=== PATIENT | female | born 1965 | race Hispanic/Latino ===

== ENCOUNTER → 2017-12-06 | Day surgery (SDC) | payer OTHER ==
--- NOTE | 2017-12-06 11:03 | RAD REPORT ---
EXAM DESCRIPTION: Ultrasound-guided vacuum assisted right breast core biopsy CLINICAL HISTORY: Breast mass, right breast upper outer quadrant, 11 mm. COMPARISON: Recent breast imaging studies. FINDINGS: Informed consent was obtained and time-out was performed. The patient's right breast was prepped and draped in the usual sterile fashion. 1% lidocaine was used for local anesthetic purposes. Utilizing aseptic technique and ultrasound guidance, vacuum assisted core biopsy device was used to o btain 2 core specimen through the mass of interest. A post biopsy clip was then placed. All collected material was sent for cytology. Patient tolerated procedure well. IMPRESSION: Successful ultrasound guided vacuum assisted right breast mass biopsy.
== END | disposition home or self-care (01) ==
LOC: DS 10:08
PROVIDERS: ATTEND Clinical Nurse Specialist Women's Health
PROC: 0HBT3ZX Excision of Right Breast, Percutaneous Approach, Diagnostic (ICD-10-PCS; principal; 2017-12-06)
DX: C50.911 Malignant neoplasm of unspecified site of right female breast (principal); Z17.0 Estrogen receptor positive status [ER+]
CPT/HCPCS: 19083; 88305

== ENCOUNTER 2018-07-30 17:04 | Inpatient (IN) | payer OTHER ==
--- OUTSIDE RECORDS SUMMARY | 2018-07-30 17:07 | XMS REPORT | Clinical Summary ---
:1965 Author Organization [facility] Address [address] [place] [address] Care Team Providers Name Role Phone Asked, No Pcp Primary Care Provider Unavailable Allergies Active Allergy Reactions Severity Noted Date Comments Ciprofloxacin Hives 12/27/2017 Hydrocodone Palpitations Low 12/27/2017 Latex Other (See Comments) 04/11/2018 BLISTERS AND SORES PER PT Sulfa (Sulfonamide Rash Low 12/27/2017 Antibiotics) Medications Medication Sig Dispensed Refills Start Date End Date Status venlafaxine Take 25 mg by 0 Active (EFFEXOR) 25 MG mouth daily. tablet anastrozole Take 1 mg by 0 Active (ARIMIDEX) 1 mg mouth daily. chemo tablet calcium Take 1 tablet 0 Active carbonate-vitamin by mouth 2 D3 500 mg-200 unit (two) times a per tablet day with meals. acetaminophen Take 325 mg by 0 Active (TYLENOL) 325 MG mouth every 6 tablet (six) hours as needed for fever. ALPRAZolam (XANAX) Take 1 mg by 0 01/03/2018 Discontinued 1 MG tablet mouth nightly as needed for anxiety. minocycline Take 100 mg by 0 01/02/2018 01/12/2018 (MINOCIN,DYNACIN) mouth 2 (two) 100 MG capsule times a day. X 10 days traMADol (ULTRAM) Take 50 mg by 0 06/27/2018 Discontinued 50 mg tablet mouth every 4 (four) hours as needed for moderate pain (1-2 tabs). Active Problems Problem Noted Date Infiltrating ductal carcinoma of upper-outer quadrant of right breast in 01/04 female Encounters Date Type Specialty Care Team Description 07/02/2018 Anesthesia Event General Surgery Nevaeh Burciaga FNP 07/02/2018 Surgery General Surgery Hugo Benítez MD PhD RECONSTRUCTED BREASTS, AUTOLOGOUS FAT GRAFT TP BILATERAL RECONSTRUCTED BREAST 07/02/2018 Hospital Encounter General Surgery Hugo Benítez MD PhD 06/27/2018 Pre-Admit Testing Pre-Admission Hugo Benítez Pre-op testing Appointment Testing MD Bettina PhD (Primary Dx) 04/11/2018 Anesthesia Event General Surgery PatricaNevaeh, COMPUTER AIDED DESIGN OPERATOR 04/11/2018 Surgery General Surgery Hugo Benítez REVISION OMAYRA Dunbar MD PhD BREAST RECONTRUCTION REPAIR,, EXCHANGE TISSUE EXPANDERS FOR BILATERAL SILICONE BREAST IMPLANTS, REPAIR BILATERAL ABDOMINAL DOG EARS, FAT GRAFTING BILATERAL BREASTS 04/11/2018 Hospital Encounter General Surgery Hugo Benítez MD PhD 04/04/2018 Pre-Admit Testing Pre-Admission Hugo Benítez Preop testing ( Primary Appointment Testing MD Betitna PhD Dx) 01/03/2018 Anesthesia Event General Surgery Patrica Nevaeh, COMPUTER AIDED DESIGN OPERATOR 01/03/2018 Surgery General Surgery Hugo Benítez IMMEDIATE OMAYRA Dunbar MD PhD BREAST RECONSTRUCTION WITH JENNIFER FLAPS AND BILATERAL SILICONE IMPLANTS 01/03/2018 - Hospital Encounter General Internal Hugo Benítez Malignant neoplasm of 01/07/2018 Medicine MD Bettina PhD right female breast, unspecified estrogen receptor status, unspecified site of breast 01/02/2018 Hospital Encounter Radiology Hiren Horn MD 01/02/2018 Hospital Encounter Radiology Justina, Malignant neoplasm of Hiern Moran, upper-outer quadrant MD of right female breast, unspecified estrogen receptor status 01/02/2018 Hospital Encounter Radiology Hiren oHrn MD 01/02/2018 Hospital Encounter Radiology Hiren Horn MD 01/02/2018 Hospital Encounter Radiology Hiren Horn MD 12/30/2017 Transcribe Orders Access Justina, Malignant neoplasm of Hiren Moran, upper-outer quadrant of right female breast, unspecified estrogen receptor status (Primary Dx) 12/27/2017 Hospital Encounter Salma Horn, Pre-op testing Hiren Moran MD 12/27/2017 Pre-Admit Testing Pre-Admission Hugo Benítez Pre-op testing Appointment Testing MD Bettina PhD (Primary Dx) after 07/29/2017 Family History Medical History Relation Name Comments No Known Problems Father Hypertension Mother Relation Name Status Comments Father Alive Mother Alive Social History Tobacco Use Types Packs/Day Years Used Date Never Smoker Smokeless Tobacco: Never Used Alcohol Use Drinks/Week oz/Week Comments Yes occasionally PER PT Sex Assigned at Date Recorded Not on file Job Start Date Occupation Industry Not on file Not on file Not on file Travel History Travel Start Travel End No recent travel history available. Last Filed Vital Signs Vital Sign Reading Time Taken Blood Pressure 108/61 07/02/2018 5:13 PM [employer] Pulse 78 07/02/2018 5:13 PM [employer] Temperature 36.7 C (98.1 F) 07/02/2018 4:39 PM [employer] Respiratory Rate 18 07/02/2018 4:39 PM [employer] Oxygen Saturation 96% 07/02/2018 5:13 PM [employer] Inhaled Oxygen Concentration - - Weight 68.5 kg (151 lb) 06/27/2018 8:21 AM [employer] Height 165.1 cm (5' 5") 06/27/2018 8:21 AM [employer] Body Mass Index 25.13 06/27/2018 8:21 AM [employer] Plan of Treatment Health Maintenance Due Date Last Done Comments CERVICAL CANCER SCREENING 1986 BREAST CANCER SCREENING 2015 COLON CANCER SCREENING 2015 SHINGRIX VACCINE (1 of 2) 2015 INFLUENZA VACCINE 03/19/2018 HEPATITIS B VACCINES Aged Out No longer eligible based on patient's age to complete this topic IPV VACCINES Aged Out No longer eligible based on patient's age to complete this topic MENINGOCOCCAL VACCINE Aged Out No longer eligible based on patient's age to complete this topic Implants Implanted Type Area Storage Receipt Poster Device Shelf Model / Identifier Expiration Serial / Date Lot Tissue General Superintendent Artoura 600cc Smooth 14cm - [id number] Plastic or Left: MENTOR 10/30/2021 [id number] / Implanted: 01/03/2018 (Quantity not on file) Cosmetic Breast [employer] [id number] / Implants or [id number] Tissue Expanders or Sets Tissue General Superintendent Artoura 600cc Smooth 14cm - [id number] Plastic or Right: MENTOR 10/30/2021 [id number] / Implanted: 01/03/2018 (Quantity not on file) Cosmetic Breast [employer] [id number] / Implants or [id number] Tissue Expanders or Sets Implant Brst Memorygel Hpro Chika-Fild Smth Rnd 650cc - [id number] Plastic or Left: MENTOR 11/24/2022 [id number] / Implanted: 04/11/2018 (Quantity not on file) Gigabit Squared Breast [employer] [id number] / Implants or [id number] Tissue Expanders or Sets Implant Brst Memorygel Hpro Chika-Fild Smth Rnd 600cc - [id number] Plastic or Right: MENTOR 09/18/2022 [id number] / Implanted: 04/11/2018 (Quantity not on file) [employer] [id number] / Implants or [id number] Tissue Expanders or Sets Drain Wnd Chnl 15fr 3/16in Rnd Hbls Fl-Flut W/ 3/16in Trocar - [id number] Surgical N/A: N/A [facility] 09/18/[id number] / Implanted: 01/03/2018 (Quantity not on file) Implants; DIVISION / Expanders; [id number] Extenders; Surgical Wires Drain Wnd Chnl 15fr 3/16in Rnd Hbls Fl-Flut W/ 3/16in Trocar - [id number] Surgical N/A: N/A [facility] 10/16/2022 [id number] / Implanted: 01/03/2018 (Quantity not on file) Implants; DIVISION / Expanders; [id number] Extenders; Surgical Wires Drain Wnd Chnl 15fr 3/16in Rnd Hbls Fl-Flut W/ 3/16in Trocar - [id number] Surgical N/A: N/A [facility] 10/16/2022 [id number] / Implanted: 01/03/2018 (Quantity not on file) Implants; DIVISION / Expanders; [id number] Extenders; Surgical Wires Drain Wnd Chnl 15fr 3/16in Rnd Hbls Fl-Flut W/ 3/16in Trocar - [id number] Surgical N/A: N/A [facility] 10/16/2022 [id number] / Implanted: 01/03/2018 (Quantity not on file) Implants; DIVISION / Expanders; [id number] Extenders; Surgical Wires Drain Wnd Chnl 15fr 3/16in Rnd Hbls Fl-Flut W/ 3/16in Trocar - [id number] Surgical N/A: N/A [employer] 09/18/2022 [id number] / Implanted: 01/03/2018 (Quantity not on file) Implants; DIVISION / Expanders; [id number] Extenders; Surgical Wires Drain Wnd Chnl 15fr 16in Rnd Hbls Fl-Flut W16in Trocar - [id number] Surgical N/A: N/A [employer] 09/18/2022 [id number] / Implanted: Qty: 1 on 01/03/2018 by Hugo Benítez MD PhD Implants; DIVISION / Expanders; [id number] Extenders; Surgical Wires Cmv Driver Anstmtc Artrl Flow 3mm Hear - [id number] Surgical Right: [employer] 05/23/2019 [id number] / Implanted: Qty: 1 on 01/03/2018 by Hugo Benítez MD PhD Implants; N/A [employer] / Expanders; [id number] Extenders; Surgical Wires Cmv Driver Anstmtc Artrl Flow 2.5mm Hear - [id number] Surgical Left: [employer] 06/13/2019 [id number] / Implanted: 01/03/2018 (Quantity not on file) Implants; Breast [employer] / Expanders; [id number] Extenders; Surgical Wires Breast Implant Procedures Procedure Name Priority Date/Time Associated Diagnosis Comments IA AN ELECTIVE Routine 07/02/2018 1:17 PM SUPRAGLOTTIC AIRWAY [employer] Procedure Note - Veronica Love CRNA - 07/02/2018 1:17 PM [employer] [employer] ANESTHESIA INTUBATION Date/Time: 07/02/2018 1:05 PM Performed by: Veronica Love CRNA Authorized by: Marcelina Gibbs MD Location: OR Urgency: Elective Difficult Airway: No Anesthesiologist: Marcelina Gibbs MD Resident/LARRY OPERATOR/AA: Veronica Love CRNA Preoxygenated with 100% O2: Yes C-spine Precautions Maintained Throughout: Yes Mask Ventilation: Easy mask Final Airway Type: Supraglottic airway Final LMA: Classic LMA Size: 4 Number of Attempts at Approach: 1 Medications Administered Propofol (DIPRIVAN) BOLUS, 150 mg POC GLUCOSE Routine 07/02/2018 11:17 AM Results for this [facility] [employer] procedure are in the results section. ECG PRE/POST OP Routine 06/27/2018 9:45 AM Pre-op testing Results for this [employer] [employer] procedure are in the results section. ESTIMATED GFR Routine 06/27/2018 8:55 AM Results for this [employer] [employer] procedure are in the results section. PROTHROMBIN TIME WITH Routine 06/27/2018 8:55 AM Pre-op testing Results for this INR [employer] procedure are in the results section. PARTIAL THROMBOPLASTIN Routine 06/27/2018 8:55 AM Pre-op testing Results for this TIME (PTT) [facility] procedure are in the results section. COMPREHENSIVE METABOLIC Routine 06/27/2018 8:55 AM Pre-op testing Results for this PANEL [employer] [employer] procedure are in the results section. HC COMPLETE BLD COUNT Routine 06/27/2018 8:55 AM Pre-op testing Results for this W/AUTO DIFF [employer] [employer] procedure are in the results section. IA AN ELECTIVE Routine 04/11/2018 11:02 AM ENDOTRACHEAL AIRWAY CDT Procedure Note - Dede Flores MD - 04/11/2018 11:02 AM CDT Airway Date/Time: 04/11/2018 10:24 AM Performed by: DEDE FLORES Authorized by: DEDE FLORES Location: OR Urgency: Elective Difficult Airway: No Anesthesiologist: DEDE FLORES Performed by: anesthesiologist Preoxygenated with 100% O2: Yes C-spine Precautions Maintained Throughout: Yes Mask Ventilation: Assisted mask Final Airway Type: Endotracheal airway Final Endotracheal Airway: ETT Cuffed: Yes Technique Used: Direct laryngoscopy Insertion Site: Oral Blade Type: Dillon Laryngoscope Blade/Videolaryngoscope Blade Size: 2 ETT Size (mm): 7.0 Cuff at minimum occlusion pressure: Yes Measured from: Lips ETT to Lips (cm): 20 Placement Verified by: CO2 detection, direct visualization and equal breath sounds Laryngoscopic view: Grade IIa - partial view of glottis Rapid Sequence Induction (RSI): No Modified RSI: No Number of Attempts at Approach: 1 POC GLUCOSE Routine 04/11/2018 8:23 AM Results for this CDT procedure are in the results section. ZZESTIMATED GFR Routine 04/04/2018 10:04 AM Results for this CDT procedure are in the results section. PROTHROMBIN TIME WITH Routine 04/04/2018 10:04 AM Preop testing Results for this INR CDT procedure are in the results section. PARTIAL THROMBOPLASTIN Routine 04/04/2018 10:04 AM Preop testing Results for this TIME (PTT) CDT procedure are in the results section. COMPREHENSIVE METABOLIC Routine 04/04/2018 10:04 AM Preop testing Results for this PANEL CDT procedure are in the results section. HC COMPLETE BLD COUNT Routine 04/04/2018 10:04 AM Preop testing Results for this W/AUTO DIFF CDT procedure are in the results section. POC GLUCOSE Routine 01/03/2018 7:34 PM Results for this CDT procedure are in the results section. MISCELLANEOUS REFERRAL Routine 01/03/2018 12:00 PM Results for this TEST CDT procedure are in the results section. SURGICAL PATHOLOGY Routine 01/03/2018 10:55 AM Results for this REQUEST CDT procedure are in the results section. SURGICAL PATHOLOGY Routine 01/03/2018 10:55 AM Results for this REQUEST CDT procedure are in the results section. IA AN ELECTIVE Routine 01/03/2018 8:23 AM ENDOTRACHEAL AIRWAY CDT Procedure Note - Radames Bourne, LARRY OPERATOR - 01/03/2018 8:23 AM CDT Airway Date/Time: 01/03/2018 8:23 AM Performed by: RADAMES BOURNE Authorized by: RUPESH AG Location: OR Urgency: Elective Difficult Airway: No Anesthesiologist: RUPESH AG Resident/LARRY OPERATOR/AA: RADAMES BOURNE Performed by: resident/LARRY OPERATOR/AA Preoxygenated with 100% O2: Yes C-spine Precautions Maintained Throughout: Yes Mask Ventilation: Easy mask Final Airway Type: Endotracheal airway Final Endotracheal Airway: ETT Cuffed: Yes Technique Used: Direct laryngoscopy Insertion Site: Oral Blade Type: Dillon Laryngoscope Blade/Videolaryngoscope Blade Size: 2 ETT Size (mm): 7.0 Cuff at minimum occlusion pressure: Yes Measured from: Lips ETT to Lips (cm): 21 Placement Verified by: CO2 detection, direct visualization and equal breath sounds Laryngoscopic view: Grade I - full view of glottis Rapid Sequence Induction (RSI): No Modified RSI: No Number of Attempts at Approach: 1 URINALYSIS SCREEN AND Timed 01/03/2018 8:09 Malignant neoplasm Results for this MICROSCOPY, WITH REFLEX AM CDT of right female procedure are in TO CULTURE breast, unspecified the results estrogen receptor section. status, unspecified site of breast URINE CULTURE Timed 01/03/2018 8:09 Results for this AM CDT procedure are in the results section. POC GLUCOSE Routine 01/03/2018 6:29 Results for this AM CDT procedure are in the results section. NM LYMPHOSEEK IMAGING Routine 01/02/2018 6:05 Malignant neoplasm Results for this PM CDT of upper-outer procedure are in quadrant of right the results female breast, section. unspecified estrogen receptor status XR CHEST 2 VW Routine 12/27/2017 10:29 Pre-op testing Results for this AM CDT procedure are in the results section. ZZESTIMATED GFR Routine 12/27/2017 10:01 Results for this AM CDT procedure are in the results section. COMPREHENSIVE METABOLIC Routine 12/27/2017 10:01 Pre-op testing Results for this PANEL AM CDT procedure are in the results section. PROTHROMBIN TIME WITH Routine 12/27/2017 10:01 Pre-op testing Results for this INR AM CDT procedure are in the results section. PARTIAL THROMBOPLASTIN Routine 12/27/2017 10:01 Pre-op testing Results for this TIME (PTT) AM CDT procedure are in the results section. HC COMPLETE BLD COUNT Routine 12/27/2017 10:01 Pre-op testing Results for this W/AUTO DIFF AM CDT procedure are in the results section. ECG PRE/POST OP Routine 12/27/2017 8:59 Pre-op testing Results for this AM CDT procedure are in the results section. MAMMO EXTERNAL STUDY Routine 12/18/2017 2:11 Results for this PM CDT procedure are in the results section. US BREAST EXTERNAL Routine 12/18/2017 2:10 Results for this STUDY PM CDT procedure are in the results section. MAMMO EXTERNAL STUDY Routine 12/18/2017 2:09 Results for this PM CDT procedure are in the results section. after 07/29/2017 Results POC glucose (07/02/2018 11:17 AM [facility] [employer])Only the most recent of4 resultswithin the time period is included. POC glucose 72 65 - 99 mg/dL [facility] [employer] [facility][NOTE 3] Comment: HOSPITAL Meter ID: [id number] Keno Writer: Syed Elkins Performing Organization Address City/State/Zipcode Phone Number [facility] DEPARTMENT OF PATHOLOGY [address] [facility] [place] [address] AND GENOMIC MEDICINE [facility] [address] [facility] [place] [address] HOSPITAL ECG Pre/Post Op (06/27/2018 9:45 AM [employer] [employer])Only the most recent of2 resultswithin the time period is included. Ventricular rate 80 [facility] Atrial rate 80 [facility] IA interval 128 [facility] QRSD interval 64 [facility] QT interval 382 [facility] QTC interval 440 [facility] P axis 1 24 [facility] QRS axis 1 8 [facility] T wave axis 37 [facility] EKG impression Normal sinus rhythm-Normal ECG-In automated [facility] MUSE comparison with ECG of 27-DEC-2017 08:59,-No significant change was found- Performing Organization Address City/[facility] Phone Number [facility] [employer] [address] [place] [address] Estimated GFR (06/27/2018 8:55 AM [employer]) Estimated GFR >=90 mL/min/1.73 m2 [facility] DEPARTMENT OF Comment: PATHOLOGY AND GENOMIC CatergoryUnitsInterpretation MEDICINE G1 >=90 Normal or high G2 60-89Mildly decreased [id number] to moderately decreased [id number] to severely decreased G4 15-29Severely decreased G5 <15Kidney failure The eGFR was calculated using the Chronic Kidney Disease Epidemiology Collaboration (CKD-EPI) equation. Interpretation is based on recommendations of the National Kidney Foundation-Kidney Disease Outcomes Quality Initiative (NKF-KDOQI) published in 2014. Specimen Plasma specimen Performing Organization Address [facility] Phone Number [facility] DEPARTMENT OF PATHOLOGY [address] [facility] [place] [address] AND [employer] [facility] Partial thromboplastin time, activated (06/27/2018 8:55 AM [employer])Only the most recent of3 resultswithin the time period is included. PTT 26.6 23.0 - 36.0 sec [facility] DEPARTMENT OF Comment: PATHOLOGY AND GENOMIC PTT therapeutic range for unfractionated heparin is MEDICINE 61.0-112.0 seconds which corresponds to Anti-Xa 0.3-0.7 U/ml. Specimen Blood Performing Organization Address [facility] Phone Number [facility] DEPARTMENT OF PATHOLOGY [address] [facility] [place] [address] AND [facility] Prothrombin time with INR (06/27/2018 8:55 AM [employer])Only the most recent of3 resultswithin the time period is included. Prothrombin time 12.4 11.5 - 14.5 sec [facility] DEPARTMENT OF PATHOLOGY AND GENOMIC MEDICINE INR 1.0 [facility] DEPARTMENT OF Comment: PATHOLOGY AND GENOMIC The International Normalized Ratio (INR) is a therapeutic MEDICINE monitoring tool for patients who are stable on oral anticoagulant therapy. An INR of 2.0-3.0 is suggested for deep vein thrombosis/pulmonary embolism. Specimen Blood Performing Organization Address City/State/Zipcode Phone Number [facility] DEPARTMENT OF PATHOLOGY [address] [place], [place] [id number] [place] [address] CBC with platelet and differential (06/27/2018 8:55 AM [employer])Only the most recent of3 resultswithin the time period is included. WBC 5.3 4.5 - 11.0 k/uL [facility] DEPARTMENT OF PATHOLOGY AND GENOMIC MEDICINE RBC 4.30 4.20 - 5.50 m/uL [facility] DEPARTMENT OF PATHOLOGY AND GENOMIC MEDICINE HGB 10.9 (L) 12.0 - 16.0 g/dL [facility] DEPARTMENT OF PATHOLOGY AND GENOMIC MEDICINE HCT 36.1 (L) 37.0 - 47.0 % [facility] DEPARTMENT OF PATHOLOGY AND GENOMIC MEDICINE MCV 84.0 82.0 - 100.0 fL [facility] DEPARTMENT OF PATHOLOGY AND GENOMIC MEDICINE MCH 25.3 (L) 27.0 - 34.0 pg [facility] DEPARTMENT OF PATHOLOGY AND GENOMIC MEDICINE MCHC 30.2 (L) 31.0 - 37.0 g/dL [facility] DEPARTMENT OF PATHOLOGY AND GENOMIC MEDICINE RDW - SD 51.8 37.0 - 55.0 fL [facility] DEPARTMENT OF PATHOLOGY AND GENOMIC MEDICINE MPV 9.4 6.9 - 11.0 fL [facility] DEPARTMENT OF PATHOLOGY AND GENOMIC MEDICINE Platelet count 281 150 - 400 K/uL [facility] DEPARTMENT OF PATHOLOGY AND GENOMIC MEDICINE Nucleated RBC 0.00 /100 WBC [facility] DEPARTMENT OF PATHOLOGY AND GENOMIC MEDICINE Neutrophils 59.2 39.0 - 69.0 % [facility] DEPARTMENT OF PATHOLOGY AND GENOMIC MEDICINE Lymphocytes 31.2 25.0 - 45.0 % [facility] DEPARTMENT OF PATHOLOGY AND GENOMIC MEDICINE Monocytes 8.4 0.0 - 10.0 % [facility] DEPARTMENT OF PATHOLOGY AND GENOMIC MEDICINE Eosinophils 0.4 0.0 - 5.0 % [facility] DEPARTMENT OF PATHOLOGY AND GENOMIC MEDICINE Basophils 0.4 0.0 - 1.0 % [facility] DEPARTMENT OF PATHOLOGY AND GENOMIC MEDICINE Immature granulocytes 0.4 0.0 - 1.0 % [facility] DEPARTMENT OF PATHOLOGY AND GENOMIC MEDICINE Specimen Blood Performing Organization Address [facility] Phone Number [facility] DEPARTMENT OF PATHOLOGY [address] [place] [id number] [employer] Comprehensive metabolic panel (06/27/2018 8:55 AM [employer] [employer])Only the most recent of3 resultswithin the time period is included. Sodium 140 135 - 148 mEq/L [facility] DEPARTMENT OF PATHOLOGY AND GENOMIC MEDICINE Potassium 4.7 3.5 - 5.0 mEq/L [facility] DEPARTMENT OF PATHOLOGY AND GENOMIC MEDICINE Chloride 99 98 - 112 mEq/L [facility] DEPARTMENT OF PATHOLOGY AND GENOMIC MEDICINE CO2 28 24 - 31 mEq/L [facility] DEPARTMENT OF PATHOLOGY AND GENOMIC MEDICINE Anion gap 13@ANIO 7 - 15 mEq/L [facility] DEPARTMENT OF PATHOLOGY AND GENOMIC MEDICINE BUN 15 6 - 20 mg/dL [facility] DEPARTMENT OF PATHOLOGY AND GENOMIC MEDICINE Creatinine 0.56 0.50 - 0.90 mg/dL [facility] DEPARTMENT OF PATHOLOGY AND GENOMIC MEDICINE Glucose 90 65 - 99 mg/dL [facility] DEPARTMENT OF PATHOLOGY AND GENOMIC MEDICINE Calcium 9.7 8.3 - 10.2 mg/dL [facility] DEPARTMENT OF PATHOLOGY AND GENOMIC MEDICINE Protein 8.0 6.3 - 8.3 g/dL [facility] DEPARTMENT OF PATHOLOGY AND GENOMIC MEDICINE Albumin 4.1 3.5 - 5.0 g/dL [facility] DEPARTMENT OF PATHOLOGY AND GENOMIC MEDICINE A/G ratio 1.1 0.7 - 3.8 [facility] DEPARTMENT OF PATHOLOGY AND GENOMIC MEDICINE Alkaline phosphatase 120 (H) 35 - 104 U/L [facility] DEPARTMENT OF PATHOLOGY AND GENOMIC MEDICINE AST 25 10 - 35 U/L [facility] DEPARTMENT OF PATHOLOGY AND GENOMIC MEDICINE ALT 28 5 - 50 U/L [facility] DEPARTMENT OF PATHOLOGY AND GENOMIC MEDICINE Total bilirubin <0.2 0.2 - 1.2 mg/dL [facility] DEPARTMENT OF PATHOLOGY AND GENOMIC MEDICINE Specimen Plasma specimen Performing Organization Address City/[facility] Phone Number [facility] DEPARTMENT OF PATHOLOGY [address] [place] [phone] [facility] [employer] Estimated GFR (04/04/2018 10:04 AM CDT)Only the most recent of2 resultswithin the time period is included. GFR Non Af Amer >90 mL/min/1.73 m2 [facility] DEPARTMENT OF PATHOLOGY AND GENOMIC MEDICINE GFR Af Amer >90 mL/min/1.73 m2 [facility] DEPARTMENT OF Comment: PATHOLOGY AND GENOMIC Chronic kidney disease: <60 mL/min/1.73m2 MEDICINE Kidney failure: <15 mL/min/1.73m2 The estimated GFR is calculated from the IDMS-traceable Modification of Diet in Renal Disease Equation. The accuracy of the calculation is poor when the creatinine is normal. Calculated values >90 mL/min/1.73m2 are not reported. This equation has not been validated in children (<18 years), women, the elderly (>70 years), or ethnic groups other than Caucasians and Americans. Specimen Plasma specimen Performing Organization Address City/[facility] Phone Number [facility] DEPARTMENT OF PATHOLOGY [id number] [place] [id number] [employer] Miscellaneous referral test (01/03/2018 12:00 PM CDT) [facility] test name ONCOTYPEDX BREAST [facility] test result SEE NOTE [facility] Comment: ONCOTYPEDX CANCER ASSAY CASE: [id number] NOTE: COMPLETE DETAILED REPORT SENT TO SUBMITTING PHYSICIAN(S) PER [facility] TO ATTACH TO PATHOLOGY REPORT. MISCELLANEOUS ORDERED FOR BILLING PURPOSES ONLY. TEST PERFORMED BY: [employer] [address] [place] [id number] Narrative Performed At COUNTS INCLUDE 234 BEDS AT THE [facility] BREAST CANCER ASSAY [id number] DOS: 01/03/2018 Performing Organization Address City/State/[facility] Phone Number [facility] [address] [place] [address] Surgical pathology request (01/03/2018 10:55 AM CDT)Only the most recent of2 resultswithin the time period is included. [facility] DEPARTMENT OF PATHOLOGY AND GENOMIC MEDICINE Surgical pathology See link below for PDF Lab [facility] DEPARTMENT OF report Report PATHOLOGY AND GENOMIC MEDICINE Result status This is Supplemental Report [facility] DEPARTMENT OF to [id number] PATHOLOGY AND GENOMIC MEDICINE Performing Organization Address City/[facility]/Zipcode Phone Number [facility] DEPARTMENT OF PATHOLOGY [id number] [place] [address] AND Direct Sitters Urinalysis screen and microscopy, with reflex to culture (01/03/2018 8:09 AM CDT) Specimen site Catheterized [facility] DEPARTMENT OF PATHOLOGY AND GENOMIC MEDICINE Color, UA Straw [facility] DEPARTMENT OF PATHOLOGY AND GENOMIC MEDICINE Appearance, UA Clear [facility] DEPARTMENT OF PATHOLOGY AND GENOMIC MEDICINE Specific gravity, UA 1.009 1.001 - 1.030 [facility] DEPARTMENT OF PATHOLOGY AND GENOMIC MEDICINE pH, UA 7.0 5.0 - 9.0 [facility] DEPARTMENT OF PATHOLOGY AND GENOMIC MEDICINE Protein, UA Negative Negative [facility] DEPARTMENT OF PATHOLOGY AND GENOMIC MEDICINE Glucose, UA Negative Negative [facility] DEPARTMENT OF PATHOLOGY AND GENOMIC MEDICINE Ketones, UA Negative Negative [facility] DEPARTMENT OF PATHOLOGY AND GENOMIC MEDICINE Bilirubin, UA Negative Negative [facility] DEPARTMENT OF PATHOLOGY AND GENOMIC MEDICINE Blood, UA Negative Negative [facility] DEPARTMENT OF PATHOLOGY AND GENOMIC MEDICINE Nitrite, UA Negative Negative [facility] DEPARTMENT OF PATHOLOGY AND GENOMIC MEDICINE Urobilinogen, UA <2.0 <2.0 E.U./dL [facility] DEPARTMENT OF PATHOLOGY AND GENOMIC MEDICINE Leukocyte esterase, UA Negative Negative [facility] DEPARTMENT OF PATHOLOGY AND GENOMIC MEDICINE Epithelial cells, UA 1 /HPF [facility] DEPARTMENT OF PATHOLOGY AND GENOMIC MEDICINE WBC, UA <1 0 - 4 /HPF [facility] DEPARTMENT OF PATHOLOGY AND GENOMIC MEDICINE RBC, UA None seen 0 - 5 /HPF [facility] DEPARTMENT OF PATHOLOGY AND GENOMIC MEDICINE Bacteria, UA None seen None seen [facility] DEPARTMENT OF PATHOLOGY AND GENOMIC MEDICINE Yeast, UA None seen [facility] DEPARTMENT OF PATHOLOGY AND GENOMIC MEDICINE Yeast with pseudohyphae, UA None seen [facility] DEPARTMENT OF PATHOLOGY AND GENOMIC MEDICINE Specimen Urine - Urine, catheter Performing Organization Address City/[facility]/Zipcode Phone Number [facility] DEPARTMENT OF PATHOLOGY [address] [place] [phone] AND [facility] Urine culture (01/03/2018 8:09 AM CDT) Urine culture SEE COMMENTComment: Bacteriuria [facility] DEPARTMENT OF PATHOLOGY screen negative. AND GENOMIC MEDICINE Performing Organization Address [facility]/Zipcode Phone Number [facility] DEPARTMENT OF PATHOLOGY [id number] [place] [address] AND [facility] NM Lymphoseek System Imaging (01/02/2018 6:05 PM CDT) Narrative Performed At Procedure:NM LYMPHOSEEK IMAGING [facility] Clinical History:C50.411 Malignant neoplasm of upper-outer quadrant of right female breast, RIGHT BREAST CANCER (C50.411) Technique: 1 mCi of [id number] (Lymphoseek) was injected intradermally in the right breast, followed by imaging of the axilla in the anterior and lateral projections. Findings: There are 2 separate lymphatic drainage tracts, both leading to the right axilla. 3 foci of mild uptake are present in the right axilla. IMPRESSION: 3 potential sentinel lymph nodes in the right axilla. [facility]-[id number] Procedure Note Interface, Radiology Results Incoming - 01/02/2018 6:27 PM CDT Procedure: NM LYMPHOSEEK IMAGING Clinical History: C50.411 Malignant neoplasm of upper-outer quadrant of right female breast, RIGHT BREAST CANCER (C50.411) Technique: 1 mCi of [id number] (Lymphoseek) was injected intradermally in the right breast, followed by imaging of the axilla in the anterior and lateral projections. Findings: There are 2 separate lymphatic drainage tracts, both leading to the right axilla. 3 foci of mild uptake are present in the right axilla. IMPRESSION: 3 potential sentinel lymph nodes in the right axilla. [facility]-[id number] Performing Organization Address City/[facility] Phone Number [facility] [address] [place] [address] XR Chest 2 Vw (12/27/2017 10:29 AM CDT) Narrative Performed At EXAMINATION:XR CHEST 2 VW [facility] CLINICAL HISTORY:Z01.818 Encounter for other preprocedural examination, PRE OP COMPARISON:None IMPRESSION: 1.Heart size within normal limits. No infiltrates or effusions are seen. 2.Vessels are not congested. [facility]-[id number] Procedure Note Interface, Radiology Results Incoming - 12/27/2017 10:35 AM CDT EXAMINATION: XR CHEST 2 VW CLINICAL HISTORY: Z01.818 Encounter for other preprocedural examination, PRE OP COMPARISON: None IMPRESSION: 1. Heart size within normal limits. No infiltrates or effusions are seen. 2. Vessels are not congested. [facility]-[id number] Performing Organization Address [facility] Phone Number [facility] [address] [place] [address] Mammo External Study (12/18/2017 2:11 PM CDT)Only the most recent of2 resultswithin the time period is included. Narrative Performed At This exam was not acquired at a [facility]astafarian facility and has not been [facility] interpreted by a Rastafarian Provider.The exam was imported into our imaging system for comparisons purposes. Performing Organization Address City/State/Zipcode Phone Number [facility] [address] [phone] US Breast External Study (12/18/2017 2:10 PM CDT) Narrative Performed At This exam was not acquired at a Rastafarian facility and has not been [facility] interpreted by a Rastafarian Provider.The exam was imported into our imaging system for comparisons purposes. Performing Organization Address City/State/Zipcode Phone Number [facility] [address] [place] [address] after 07/29/2017 Insurance Payer Benefit Plan / Group Subscriber ID Type Phone Address AETNA AETNA HMO,POS,EPO, MC/EC xxxxxxxxxx HMO [phone] [place] [address] (Home) [place] [id number] [facility]al[facility] 1965 [phone] [place] [address] Surgery 3 (Home) [place] [id number] Advance Directives Patient has advance care planning documents on file. For more information, please contact:[address] [address]
[2018-07-30] MEDS ORDERED: HYDROMORPHONE HCL 1 MG/ML INJ ONE (17:40)
[2018-07-30] MEDS ORDERED: ACETAMINOPHEN 500 MG TAB ONE (17:40)
[2018-07-30] MEDS ORDERED: NA CHLORIDE 0.9% 1,000 ML ONE ×3 (17:40→22:16)
[2018-07-30 18:21] LABS: ALT/SGPT 30 U/L (12-78); AST/SGOT 39 U/L (15-37); Albumin 3.5 g/dL (3.4-5.0); Alkaline Phosphatase 132 U/L (45-117); BUN Blood Urea Nitrogen 11 mg/dL (7-18); Bicarbonate 28 mmol/L (21-32); Bilirubin Direct < 0.1 mg/dL (0-0.2); Bilirubin Total 0.3 mg/dL (0.2-1.0); CKMB Creatine Kinase MB < 1.0 ng/mL (0.3-3.6); Creatine Phosphokinase 131 U/L (26-192); Glucose Level 91 mg/dL (74-106); Lipase 143 U/L (73-393); Potassium 4.6 mmol/L (3.5-5.1); Sodium Level 137 mmol/L (136-145); Troponin (Emerg Dept Use Only) < 0.02 ng/mL (0.0-0.045)
--- NOTE | 2018-07-30 18:28 | RAD REPORT ---
EXAM DESCRIPTION: RAD - Chest Single View - 07/30/2018 6:21 pm CLINICAL HISTORY: CHEST PAIN Chest pain. COMPARISON: CHEST SINGLE VIEW dated 03/05/2012 FINDINGS: Portable technique limits examination quality. The lungs are grossly clear. The heart is normal in size. No displaced fractures. IMPRESSION: No acute intrathoracic process suspected.
[2018-07-30 18:48] LABS: Protime INR 1.03
[2018-07-30 19:04] LABS: Absolute Lymphocytes (CBC) 0.8 K/uL (0.7-4.9); Absolute Monocytes 0.4 K/uL (0.1-1.3); Absolute Neutrophil 10.6 K/uL (1.8-8.0); Basophils % 0.4 % (0-1.3); Eosinophils % 0.1 % (0-4.4); Hematocrit 34.3 % (36.0-45.0); Lymphocytes % 6.4 % (15.3-44.8); MCH 26.2 pg (27.0-35.0); MCV 80.7 fL (80-100); MPV 8.2 fL (7.6-11.3); Monocytes % 3.4 % (3.3-12.3); RBC Red Blood Cell Count 4.25 M/uL (3.86-4.86)
[2018-07-30 19:34] LABS: Blood Morphology Comment NOTED (NOT SEEN); Hypochromasia 1+; Platelet Estimate ADEQ; Stomatocytes 1+; Urine White Blood Cell Casts OK
--- NOTE | 2018-07-30 19:50 | RAD REPORT ---
EXAM DESCRIPTION: CT - Head Brain Wo Cont - 07/30/2018 7:41 pm CLINICAL HISTORY: HEADACHE Fever COMPARISON: No comparisons TECHNIQUE: All CT scans are performed using dose optimization technique as appropriate and may inclu de automated exposure control or mA/KV adjustment according to patient size. FINDINGS: No intracranial hemorrhage, hydrocephalus or extra-axial fluid collection.No areas of brai n edema or evidence of midline shift. The paranasal sinuses and mastoids are clear. The calvarium is intact. IMPRESSION: No acute intracranial abnormality.
[2018-07-30] MEDS ORDERED: IBUPROFEN 400 MG TAB ONE (20:45)
[2018-07-30] MEDS ORDERED: IBUPROFEN 200 MG TAB PO ONE (20:45)
[2018-07-30 20:56] LABS: Urine Blood NEGATIVE (NEG); Urine Glucose NEGATIVE (NEG); Urine Protein NEGATIVE (NEG)
[2018-07-30 20:57] LABS: Urine Bacteria NONE SEEN /HPF (<20); Urine Culture Reflex Order NOT NEEDED; Urine RBC <5 /HPF (NONE SEEN)
[2018-07-30] MEDS ORDERED: VANCOMYCIN 1 GM/250 ML BAG ONE (22:05)
[2018-07-30] MEDS ORDERED: PIPER/TAZO/NS 3.375gm 3.375 GM/100 ML BAG ONE (22:05)
--- NOTE | 2018-07-30 22:05 | ER ---
Nurse's Notes [facility] Name: Cassy Schmitz Age: 52 yrs Sex: Female : 1965 Arrival Date: 07/30/2018 Time: 17:07 Bed 5 Private MD: Diagnosis: Sepsis, unspecified organism;Cellulitis of chest wall Presentation: 07/30 17:08 Presenting complaint: EMS states: per EMD, pt has been taking anastrozole, chemo drug hj for breast cancer since December this year; today around 1 pm, pt started complaining of flu like symptoms, body aches and low grade fever of 100.9; reports joint pains; BP- 142/83; HR- 134; T- 100.9;. Transition of care: patient was not received from another setting of care. Onset of symptoms was July 30, 2018. Risk Assessment: Do you want to hurt yourself or someone else? Patient reports no desire to harm self or others. Initial Sepsis Screen: Does the patient meet any 2 criteria? No. Patient's initial sepsis screen is negative. Does the patient have a suspected source of infection? No. Patient's initial sepsis screen is negative. Care prior to arrival: None. 17:08 Method Of Arrival: EMS: [facility] 17:08 Acuity: JANI 3 hj Triage Assessment: 17:12 General: Appears in no apparent distress. uncomfortable, Behavior is calm, cooperative, hj appropriate for age. Pain: Complains of pain in body aches. Historical: - Allergies: 17:11 Ciprofloxacin HCl; 17:11 Sulfa (Sulfonamide Antibiotics); 17:11 Hydrocodone-Acetaminophen; hj - Home Meds: 17:11 anastrozole 1 mg oral tab [Active]; hj - PMHx: 17:11 breast cancer; hj - PSHx: 17:11 breast surgery; hj - Immunization history:: Adult Immunizations unknown. - Social history:: Smoking status: Patient/guardian denies using tobacco, Patient/guardian denies using alcohol. - Ebola Screening: : Patient negative for fever greater than or equal to 101.5 degrees Fahrenheit, and additional compatible Ebola Virus Disease symptoms Patient denies exposure to infectious person Patient denies travel to an Ebola-affected area in the 21 days before illness onset. Screenin:12 Abuse screen: Denies threats or abuse. Denies injuries from another. Nutritional hj screening: No deficits noted. Tuberculosis screening: No symptoms or risk factors identified. Fall Risk None identified. Assessment: 17:08 General: Appears in no apparent distress. uncomfortable, Behavior is cooperative, hj appropriate for age, anxious, crying. Pain: Complains of pain in body. Neuro: Level of Consciousness is awake, alert, obeys commands, Oriented to person, place, time, situation, Appropriate for age. Cardiovascular: Heart tones S1 S2 present Capillary refill < 3 seconds Patient's skin is warm and dry. Rhythm is sinus tachycardia. Respiratory: Airway is patent Respiratory effort is even, unlabored, Respiratory pattern is regular, symmetrical. GI: No signs and/or symptoms were reported involving the gastrointestinal system. : No signs and/or symptoms were reported regarding the genitourinary system. EENT: No signs and/or symptoms were reported regarding the EENT system. Derm: Rash noted that is chest area;. Musculoskeletal: No signs and/or symptoms reported regarding the musculoskeletal system. 18:32 Reassessment: Patient and/or family updated on plan of care and expected duration. Pain hj level reassessed. Patient is alert, oriented x 3, equal unlabored respirations, skin warm/dry/pink. awaiting results and POC: Patient states feeling better. Patient states symptoms have improved. 20:09 Reassessment: Patient appears in no apparent distress at this time. Patient and/or rv family updated on plan of care and expected duration. Pain level reassessed. 23:27 Reassessment: Patient appears in no apparent distress at this time. AWAITING ACCEPTANCE rv FROM OTHER FACILITY. Vital Signs: 17:13 BP 132 / 86; Pulse 120; Resp 18; Temp 100.6(O); Pulse Ox 100% on R/A; Weight 63.5 kg; hj Height 5 ft. 4 in. (162.56 cm); Pain 10/10; 18:28 BP 128 / 80; Pulse 106; Resp 18; Pulse Ox 100% on R/A; hj 19:00 BP 123 / 80; Pulse 111 MON; Resp 18 S; Pulse Ox 100% on R/A; rv 20:22 BP 117 / 78; Pulse 122 MON; Resp 24 S; Temp 103(O); Pulse Ox 100% on R/A; rv 21:00 BP 103 / 72; Pulse 116 MON; Resp 22 S; Pulse Ox 100% on 2 lpm NC; jd3 21:30 BP 97 / 57; Pulse 116 MON; Resp 23 S; Pulse Ox 97% on 2 lpm NC; jd3 22:15 BP 95 / 56 LA (auto/); Pulse 114 MON; Resp 17 S; Temp 100.3(O); Pulse Ox 98% on 2 lpm jd3 NC; 23:26 BP 96 / 56; Pulse 105 MON; Resp 18 S; Pulse Ox 98% 2 lpm ; rv 12 00:23 BP 90 / 53; Pulse 104; Resp 16; Pulse Ox 99% on 2 lpm NC; rv 12 17:13 Body Mass Index 24.03 (63.50 kg, 162.56 cm) ED Course: 07/30 17:07 Patient arrived in ED. hj 17:10 Triage completed. hj 17:12 Arm band placed on right wrist. hj 17:12 Patient has correct armband on for positive identification. Placed in gown. Bed in low hj position. Call light in reach. Side rails up X 1. Adult w/ patient. 17:13 Daniel Strong PA is PHCP. jr8 17:13 Abhinav England MD is Attending Physician. jr8 17:26 Drew Nash RN is Primary Nurse. hj 17:29 EKG done, by spd tech. reviewed by Daniel HARRELL. sm3 17:45 Initial lab(s) drawn, by me, sent to lab. First set of blood cultures drawn by me. hj 17:54 Inserted saline lock: 22 gauge in left forearm, using aseptic technique. Blood hj collected. 18:18 PHCP role handed off by Daniel Strong PA pm1 18:18 Calixto Bishop NP is PHCP. pm1 18:19 X-ray completed. Portable x-ray completed in exam room. Patient tolerated procedure mh1 well. 18:20 Chest Single View XRAY In Process Unspecified. EDMS 19:00 Report given to KEREN Pace. hj 19:41 CT Head Brain wo Cont In Process Unspecified. EDMS 20:09 Inserted saline lock: 24 gauge in left hand, using aseptic technique. Blood collected. ds4 20:10 Report received from NURSE CLARK. rv 20:10 [place] Screen Profile Sent. ds4 22:34 called to initiate transfer . kirby harman spoke with house sup. no beds gm available. 23:27 Bharat Falcon MD is Hospitalizing Provider. pm1 07/31 01:36 No provider procedures requiring assistance completed. Patient admitted, IV remains in rv place. intact. Administered Medications: 07/30 17:27 Drug: Acetaminophen 1000 mg Route: PO; hj 18:55 Follow up: Response: No adverse reaction hj 18:00 Drug: NS 0.9% (30 ml/kg) 30 ml/kg Route: IV; Rate: bolus; Site: left antecubital; hj 22:33 Follow up: IV Status: Completed infusion; IV Intake: 2000ml rv 18:00 Drug: Dilaudid 1 mg Route: IVP; Site: left antecubital; hj 18:27 Follow up: Response: No adverse reaction; Pain is decreased hj 20:45 Drug: Ibuprofen 600 mg Route: PO; rv 22:33 Follow up: Response: Temperature is decreased rv 22:00 Drug: Zosyn 3.375 grams Route: IVPB; Infused Over: 60 mins; Site: left antecubital; rv 23:18 Follow up: IV Status: Completed infusion rv 22:13 Drug: fentaNYL (PF) 25 mcg Route: IVP; Site: left antecubital; rv 23:18 Follow up: Response: Pain is decreased rv 22:15 CANCELLED (md discretion): Dilaudid 1 mg IVP once rv 22:16 Drug: NS 0.9% 1000 ml Route: IV; Rate: 125 ml/hr; Site: left antecubital; rv 07/31 01:38 Follow up: IV Status: Completed infusion rv 07/30 23:19 Drug: vancoMYCIN 1 grams Route: IVPB; Infused Over: 2 hrs; Site: left antecubital; rv 07/31 01:38 Follow up: IV Status: Completed infusion rv Intake: 07/30 22:33 IV: 2000ml; Total: 2000ml. rv Outcome: 22:05 ER care complete, transfer ordered by MD. pm1 23:28 Decision to Hospitalize by Provider. pm1 07/31 01:37 Admitted to ICU accompanied by nurse, via stretcher, room 8, on monitor, with chart, rv Report called to NURSE DAY Condition: stable Instructed on the need for admit. 01:39 Patient left the ED. rv Signatures: Dispatcher [employer] EDMS Agnes Castillo mh1 Daniel Strong PA PA jr8 Erickson Camejo ds4 Drew Nash RN RN hj Calixto Bishop, NATY CANDY WRAPPING MACHINE OPERATOR pm1 Jose G Morel RN RN jd3 Ami Phillips sm3 Alonso Guzman RN RN rv Moya, Gabriella gm Corrections: (The following items were deleted from the chart) 07/30 18:05 17:13 BP 132 / 86; Pulse 120bpm; Resp 18bpm; Pulse Ox 100% RA; Temp 100.6F Oral; 4.54 hj kg; Height 5 ft. 4 in.; BMI: 1.72; Pain 10/10; hj
--- NOTE | 2018-07-30 22:06 | EDPHYS ---
Physician Documentation [facility] Name: Cassy Schmitz Age: 52 yrs Sex: Female : 1965 Arrival Date: 07/30/2018 Time: 17:07 Bed 5 Private MD: ED Physician Abhinav England HPI: 07/30 17:42 This 52 yrs old Female presents to ER via EMS with complaints of Flu Symptoms. jr8 17:42 Patient with radical bilateral mastectomy this past december. Stated that she was started on jr8 Anastozole that december as well. Had gradual muscle stiffness and bone and joint pain since she has been on medication but can normally tolerate the pain. Today had sudden onset of worsening of pain along with aches, chills, fever, headache, and neck stiffness . Severity of symptoms: At their worst the symptoms were moderate in the emergency department the symptoms are unchanged. The patient has not experienced similar symptoms in the past. The patient has not recently seen a physician. Historical: - Allergies: 17:11 Ciprofloxacin HCl; hj 17:11 Sulfa (Sulfonamide Antibiotics); hj 17:11 Hydrocodone-Acetaminophen; hj - Home Meds: 17:11 anastrozole 1 mg oral tab [Active]; hj - PMHx: 17:11 breast cancer; hj - PSHx: 17:11 breast surgery; hj - Immunization history:: Adult Immunizations unknown. - Social history:: Smoking status: Patient/guardian denies using tobacco, Patient/guardian denies using alcohol. - Ebola Screening: : Patient negative for fever greater than or equal to 101.5 degrees Fahrenheit, and additional compatible Ebola Virus Disease symptoms Patient denies exposure to infectious person Patient denies travel to an Ebola-affected area in the 21 days before illness onset. ROS: 17:42 Eyes: Negative for injury, pain, redness, and discharge, ENT: Negative for injury, jr8 pain, and discharge, Cardiovascular: Negative for chest pain, palpitations, and edema, Respiratory: Negative for shortness of breath, cough, wheezing, and pleuritic chest pain, Abdomen/GI: Negative for abdominal pain, nausea, vomiting, diarrhea, and constipation, Back: Negative for injury and pain, Skin: Negative for injury, rash, and discoloration. 17:42 Constitutional: Positive for body aches, chills, fever. 17:42 Neck: Positive for stiffness, Negative for pain with movement, pain at rest, tenderness, bony tenderness. 17:42 MS/extremity: Positive for diffuse joint tenderness . 17:42 Neuro: Positive for headache, Negative for altered mental status, dizziness, gait disturbance, hearing loss, loss of consciousness, numbness, seizure activity, speech changes, syncope, near syncope, tingling, tinnitus, tremor, visual changes, weakness. Exam: 17:42 Head/Face: Normocephalic, atraumatic. Eyes: Pupils equal round and reactive to light, jr8 extra-ocular motions intact. Lids and lashes normal. Conjunctiva and sclera are non-icteric and not injected. Cornea within normal limits. Periorbital areas with no swelling, redness, or edema. ENT: Nares patent. No nasal discharge, no septal abnormalities noted. Tympanic membranes are normal and external auditory canals are clear. Oropharynx with no redness, swelling, or masses, exudates, or evidence of obstruction, uvula midline. Mucous membranes moist. Cardiovascular: Regular rate and rhythm with a normal S1 and S2. No gallops, murmurs, or rubs. Normal PMI, no JVD. No pulse deficits. Respiratory: Lungs have equal breath sounds bilaterally, clear to auscultation and percussion. No rales, rhonchi or wheezes noted. No increased work of breathing, no retractions or nasal flaring. Abdomen/GI: Soft, non-tender, with normal bowel sounds. No distension or tympany. No guarding or rebound. No evidence of tenderness throughout. Back: No spinal tenderness. No costovertebral tenderness. Full range of motion. Skin: Warm, dry with normal turgor. Normal color with, no lesions. Mild red blotching rash to chest MS/ Extremity: Pulses equal, no cyanosis. Neurovascular intact. Full, normal range of motion. Neuro: Awake and alert, GCS 15, oriented to person, place, time, and situation. Cranial nerves II-XII grossly intact. Motor strength 5/5 in all extremities. Sensory grossly intact. Cerebellar exam normal. Normal gait. 17:42 Neck: External neck: is normal, Thyroid: appears normal, Trachea: is midline with no obvious abnormalities, ROM/movement: pain, that is mild, with any movement, Meningeal signs: Kernig's sign is negative, Brudzinski's sign is negative, nuchal rigidity, is not appreciated. Vital Signs: 17:13 BP 132 / 86; Pulse 120; Resp 18; Temp 100.6(O); Pulse Ox 100% on R/A; Weight 63.5 kg; hj Height 5 ft. 4 in. (162.56 cm); Pain 10/10; 18:28 BP 128 / 80; Pulse 106; Resp 18; Pulse Ox 100% on R/A; hj 19:00 BP 123 / 80; Pulse 111 MON; Resp 18 S; Pulse Ox 100% on R/A; rv 20:22 BP 117 / 78; Pulse 122 MON; Resp 24 S; Temp 103(O); Pulse Ox 100% on R/A; rv 21:00 BP 103 / 72; Pulse 116 MON; Resp 22 S; Pulse Ox 100% on 2 lpm NC; jd3 21:30 BP 97 / 57; Pulse 116 MON; Resp 23 S; Pulse Ox 97% on 2 lpm NC; jd3 22:15 BP 95 / 56 LA (auto/); Pulse 114 MON; Resp 17 S; Temp 100.3(O); Pulse Ox 98% on 2 lpm jd3 NC; 23:26 BP 96 / 56; Pulse 105 MON; Resp 18 S; Pulse Ox 98% 2 lpm ; rv 12 00:23 BP 90 / 53; Pulse 104; Resp 16; Pulse Ox 99% on 2 lpm NC; rv 07/30 17:13 Body Mass Index 24.03 (63.50 kg, 162.56 cm) hj MDM: 07/30 17:13 Patient medically screened. [facility] 23:17 Data reviewed: vital signs. Data interpreted: Pulse oximetry: on room air is 98 %. pm1 Interpretation: normal. 23:23 ED course: [facility] is at capacity for ICU beds. Informed patient and pm1 wanted to see if possible to be admitted here. 23:23 Physician consultation: Bharat Falcon MD was called at 23:26, was contacted at 23:26, pm1 regarding admission, patient's condition, and will see patient in ED. 07/30 17:25 Order name: Basic Metabolic Panel; Complete Time: 18:22 [facility] 07/30 17:25 Order name: Blood Culture Adult (2) [facility] 07/30 17:25 Order name: CBC with Diff; Complete Time: 20:01 [facility] 07/30 17:25 Order name: Ckmb; Complete Time: 18:22 [facility] 07/30 17:25 Order name: CPK; Complete Time: 18:22 [facility] 07/30 17:25 Order name: Lactate; Complete Time: 18:33 [facility] 07/30 17:25 Order name: LFT's; Complete Time: 18:22 [facility] 07/30 17:25 Order name: Lipase; Complete Time: 18:22 [facility] 07/30 17:25 Order name: Procalcitonin; Complete Time: 18:45 [facility] 07/30 17:25 Order name: Protime (+inr); Complete Time: 19:15 [facility] 07/30 17:25 Order name: Ptt, Activated; Complete Time: 19:15 [facility] 07/30 17:25 Order name: Troponin (emerg Dept Use Only); Complete Time: 18:22 [facility] 07/30 17:25 Order name: Urine Microscopic Only; Complete Time: 21:01 [facility] 07/30 17:25 Order name: Flu; Complete Time: 18:17 [facility] 07/30 17:25 Order name: Chest Single View XRAY; Complete Time: 18:33 [facility] 07/30 17:44 Order name: EKG Electrocardiogram; Complete Time: 18:03 EDMS 07/30 19:08 Order name: CBC Smear Scan; Complete Time: 20:01 EDMS 07/30 19:19 Order name: CT Head Brain wo Cont; Complete Time: 20:01 pm1 07/30 19:19 Order name: [place] Screen Profile; Complete Time: 20:27 pm1 07/30 20:53 Order name: Urine Dipstick--Ancillary (enter results); Complete Time: 21:01 gm 07/30 21:42 Order name: Lactate Sepsis 2 HR Follow-up; Complete Time: 21:47 EDMS 07/30 17:25 Order name: Accucheck; Complete Time: 18:27 [facility] 07/30 17:25 Order name: Cardiac monitoring; Complete Time: 17:28 [facility] 07/30 17:25 Order name: EKG - Nurse/Tech; Complete Time: 17:28 [facility] 07/30 17:25 Order name: IV Saline Lock - Large Bore; Complete Time: 18:05 [facility] 07/30 17:25 Order name: Labs collected and sent; Complete Time: 17:56 [facility] 07/30 17:25 Order name: O2 Per Protocol; Complete Time: 17:28 [facility] 07/30 17:25 Order name: O2 Sat Monitoring; Complete Time: 17:28 [facility] 07/30 17:25 Order name: Urine Dipstick-Ancillary (obtain specimen); Complete Time: 20:46 [facility] 07/30 18:02 Order name: Labs - recollect needed; Complete Time: 18:03 bd Administered Medications: 17:27 Drug: Acetaminophen 1000 mg Route: PO; hj 18:55 Follow up: Response: No adverse reaction hj 18:00 Drug: NS 0.9% (30 ml/kg) 30 ml/kg Route: IV; Rate: bolus; Site: left antecubital; hj 22:33 Follow up: IV Status: Completed infusion; IV Intake: 2000ml rv 18:00 Drug: Dilaudid 1 mg Route: IVP; Site: left antecubital; hj 18:27 Follow up: Response: No adverse reaction; Pain is decreased hj 20:45 Drug: Ibuprofen 600 mg Route: PO; rv 22:33 Follow up: Response: Temperature is decreased rv 22:00 Drug: Zosyn 3.375 grams Route: IVPB; Infused Over: 60 mins; Site: left antecubital; rv 23:18 Follow up: IV Status: Completed infusion rv 22:13 Drug: fentaNYL (PF) 25 mcg Route: IVP; Site: left antecubital; rv 23:18 Follow up: Response: Pain is decreased rv 22:15 CANCELLED (md discretion): Dilaudid 1 mg IVP once rv 22:16 Drug: NS 0.9% 1000 ml Route: IV; Rate: 125 ml/hr; Site: left antecubital; rv 12 01:38 Follow up: IV Status: Completed infusion rv 07/30 23:19 Drug: vancoMYCIN 1 grams Route: IVPB; Infused Over: 2 hrs; Site: left antecubital; rv 12 01:38 Follow up: IV Status: Completed infusion rv Disposition: 07/30/18 23:28 Hospitalization ordered by Bharat Falcon for Inpatient Admission. Preliminary diagnosis are Sepsis, unspecified organism, Cellulitis of chest wall. - Bed requested for Intensive Care Unit. - Status is Inpatient Admission. rv - Condition is Stable. - Problem is new. - Symptoms have improved. UTI on Admission? No Addendum: 08/05/2018 01:27 Co-signature as Attending Physician, Abhinav England MD. r n Signatures: Dispatcher [employer] EDMS Mira Chin Roman, MD MD rn Ligia, Daniel, PA PA jr8 Drew Nash, RN RN Fatmata Medina RN RN Calixto Bishop, ACADEMIC COACH ACADEMIC COACH pm1 Buck Ruiz MD MD tw4 Alonso Guzman RN RN rv Corrections: (The following items were deleted from the chart) 07/30 22:15 22:06 Dilaudid 1 mg IVP once ordered. pm1 rv 23:27 22:05 07/30/2018 22:05 Transfer ordered to Other Acute Care Facility. Diagnosis is pm1 Cellulitis of chest wall. Reason for transfer: Higher level of care. Accepting physician is Shinto ARIELLE. Condition is Stable. Problem is new. Symptoms have improved. pm1 07/31 00:40 07/30 23:28 Hospitalization Ordered by Bharat Falcon MD for Inpatient Admission. cg Preliminary diagnosis is Sepsis, unspecified organism; Cellulitis of chest wall. Bed requested for Intensive Care Unit. Status is Inpatient Admission. Condition is Stable. Problem is new. Symptoms have improved. UTI on Admission? No. pm1 07/31 01:39 00:40 07/30/2018 23:28 Hospitalization Ordered by Bharat Falcon MD for Inpatient rv Admission. Preliminary diagnosis is Sepsis, unspecified organism; Cellulitis of chest wall. Bed requested for Intensive Care Unit. Status is Inpatient Admission. Condition is Stable. Problem is new. Symptoms have improved. UTI on Admission? No. cg
[2018-07-30] MEDS ORDERED: FENTANYL CITR 100 MCG/2 ML ONE (22:21)
[2018-07-31] MEDS ORDERED: TRAMADOL HCL 50 MG TAB PO PRN (00:44)
--- NOTE | 2018-07-31 00:52 | P.HP ---
Certification for Inpatient Patient admitted to: Observation With expected LOS: <2 Midnights Practitioner: I am a practitioner with admitting privileges, knowledge of patient current condition, hospital course, and medical plan of care. Services: Services provided to patient in accordance with Admission requirements found in Title 42 Section 412.3 of the Code of Federal Regulations Patient History Date of Service: 07/31/18 Reason for admission: fever, generalized pain History of Present Illness: Ms Schmitz is a 52 years old woman with history of breast cancer, S/P bilateral mastectomy with subsequent breast implant, currently on Anastrazole treatment since December/2017. She has been with significant generalized pain due to Anastrazole, her Oncologist advised to stop treatment yesterday. Today, the patient start with chills, her generalized pain was more intense, temp at home was 100.3F. She denied SOB, cough, nausea, vomiting or diarrhea. No dysuria either. Initially in ER she had a rash on her chest, that was assumed as cellulits. However, at my examination, the rash was resolved already. Lab work remarkable for leukocytosis 11.8K, lactate elevated, procalcitonin WNL. UA normal, CXR without acute abnormalities. Her BP was in the lower side 95/66, temp 100.6F. Allergies ciprofloxacin [From Cipro] Allergy (Mild, Verified 08/21/16 10:55) Hives/Rash ciprofloxacin HCl [From Cipro] Allergy (Mild, Verified 08/21/16 10:55) Hives/Rash Sulfa (Sulfonamide Antibiotics) [Sulfa(Sulfonamide Antibiotics)] Allergy (Mild, Verified 08/21/16 10:55) Hives/Rash hydrocodone Adverse Reaction (Verified 08/21/16 10:55) heart palpitations Home medications list reviewed: Yes Home Medications: Solifenacin [Vesicare] 5 mg PO DAILY 08/21/16 - Past Medical/Surgical History -: breast cancer -: bilateral mastectomy -: breast implantation - Family History Family History: Reviewed- Non-Contributory - Social History Alcohol use: No CD- Drugs: No Place of Residence: Home Review of Systems 10-point ROS is otherwise unremarkable Physical Examination - Physical Exam General: Alert, In no apparent distress HEENT: Atraumatic, PERRLA, Mucous membr. moist/pink, EOMI, Sclerae nonicteric Neck: Supple, 2+ carotid pulse no bruit, No LAD, Without JVD or thyroid abnormality Respiratory: Clear to auscultation bilaterally, Normal air movement Cardiovascular: Regular rate/rhythm, Normal S1 S2 Gastrointestinal: Normal bowel sounds, No tenderness Musculoskeletal: No tenderness Integumentary: No rashes Neurological: Normal speech, Normal strength at 5/5 x4 extr, Normal tone, Normal affect Lymphatics: No axilla or inguinal lymphadenopathy - Studies Laboratory Data (last 24 hrs) 07/30/18 18:00: PT 12.2, INR 1.03, APTT 27.1 07/30/18 18:00: WBC 11.8 H, Hgb 11.1 L, Hct 34.3 L, Plt Count 248 07/30/18 17:45: Sodium 137, Potassium 4.6, BUN 11, Creatinine 0.80, Glucose 91, Total Bilirubin 0.3, AST 39 H, ALT 30, Alkaline Phosphatase 132 H, Lipase 143 Microbiology Data (last 24 hrs): 07/30/18 17:36 Nasopharnyx Influenza Type A Antigen Screen - Final 07/30/18 17:36 Nasopharnyx Influenza Type B Antigen Screen - Final Assessment and Plan - Problems (Diagnosis) (1) Fever and chills Current Visit: Yes Status: Acute (2) Breast cancer Current Visit: Yes Status: Acute Qualifiers: Breast location: unspecified site of breast Estrogen receptor status: unspecified Patient sex: female Laterality: bilateral Qualified Code(s): C50.911 - Malignant neoplasm of unspecified site of right female breast; C50.912 - Malignant neoplasm of unspecified site of left female breast - Plan The patient will be admitted under observation due to fever without obvious source of infection. She is on Anastrazole treatment. Lactate was elevated, and subsequent control continued elevated despite aggressive fluid resuscitation. Her BP remain also on the lower side. Continue empiric abx, consider viral infection. - Advance Directives Does patient have a Living Will: No Does patient have a Durable POA for Healthcare: No - Code Status/Comfort Care Code Status Assessed: Yes Code Status: Full Code
[2018-07-31] MEDS ORDERED: ONDANSETRON 4 MG/2 ML VIAL IV PRN (01:48)
[2018-07-31 01:56] VITALS: BMI 25.7
[2018-07-31] MEDS: NA CHLORIDE 0.9% 1,000 ML IV SCH ×3 (02:03→21:48)
[2018-07-31] MEDS: KETOROLAC 30 MG/ML INJ IV PRN (02:21)
[2018-07-31 04:59] LABS: Absolute Lymphocytes (CBC) 0.6 K/uL (0.7-4.9); Absolute Monocytes 0.5 K/uL (0.1-1.3); Absolute Neutrophil 12.2 K/uL (1.8-8.0); Basophils % 0.3 % (0-1.3); Eosinophils % 0.1 % (0-4.4); Hematocrit 28.7 % (36.0-45.0); Lymphocytes % 4.2 % (15.3-44.8); MCH 25.8 pg (27.0-35.0); MCV 79.3 fL (80-100); MPV 8.2 fL (7.6-11.3); Monocytes % 3.8 % (3.3-12.3); RBC Red Blood Cell Count 3.62 M/uL (3.86-4.86)
[2018-07-31 05:08] LABS: Potassium 3.4 mmol/L (3.5-5.1)
--- NOTE | 2018-07-31 05:13 | EKG ---
Test Date: 2018-07-30 Test Time: 17:24:16 Jig And Fixture Builder Apprentice: RENATO MEASUREMENT RESULTS: Intervals: Rate: 117 MI: 122 QRSD: 70 QT: 312 QTc: 435 Ackworth: P: 37 MI: 122 QRS: 35 T: 50 INTERPRETIVE STATEMENTS: Sinus tachycardia Otherwise normal ECG Compared to ECG 08/29/2016 13:20:10 Sinus rhythm no longer present Electronically Signed On 07-31-18 05:12:29 SAFETY SUPERVISOR by Sami Long
[2018-07-31] MEDS ORDERED: INFLUENZA VACCINE (for 3y+) 0.5 ML DOSE IMVAC ONE (09:00)
[2018-07-31] MEDS: MORPHINE 2 MG/ML SYR IV PRN ×3 (11:51→20:36)
[2018-07-31] MEDS: VANCOMYCIN 1.25 GM in NA CHLORIDE 0.9% 250 ML IVPB SCH (11:52)
[2018-07-31] MEDS ORDERED: NA CHLORIDE 0.9% 1,000 ML IV ONE (15:54)
[2018-07-31] MEDS: ACETAMINOPHEN 500 MG TAB PO PRN ×2 (16:36→20:37)
--- NOTE | 2018-07-31 16:42 | RAD REPORT ---
EXAM DESCRIPTION: CT - Abdomen Pelvis W Contrast - 07/31/2018 4:11 pm CLINICAL HISTORY: Abdominal pain, nausea, fever of unknown origin, breast cancer history COMPARISON: CT imaging October 2017, portable chest July 30 TECHNIQUE: Biphasic, helical CT imaging of the abdomen and pelvis was performed following 100 ml non -ionic IV contrast. Oral contrast was given. All CT scans are performed using dose optimization technique as appropriate and may include automated exposure control or mA/KV adjustment according to patient size. FINDINGS: Atelectasis is present in each posterior gutter. No acute lung parenchymal process. No per icardial thickening or effusion. The liver, spleen, and pancreas show no suspicious findings. Gallbladder and biliary tree are also wi thout suspicious finding. Symmetric renal function is seen with no hydronephrosis or suspicious renal mass. No pyelonephritis o r acute renal parenchymal process. Contracted urinary bladder shows no suspicious finding. Uterus is absent. Ovaries are absent or atrophic. No adnexal abnormality. No dilated bowel loops or bowel wall thickening. Appendix is normal. No free air, free fluid or infla mmatory stranding. No hernia, mass or bulky lymphadenopathy. No adrenal abnormality. No suspicious bony findings. Patient has bilateral breast implants in place only partially imaged. Breast implants were present [facility] 2017. There is fluid and edema in the fatty tissues of each breast surrounding the breast implant s. The congestion or edema extends into the fat of the anterior upper abdomen. No air or focal mass o r fluid collection in the partially imaged breast tissues. No history is available indicating whether the patient had a recent breast implant revision, capsulotomy or other procedure. There is no evidence for failure or volume overload in the lower lung hernandez an the recent portable c hest film is unremarkable. In the absence of any breast or implant procedure, an infectious/inflammat ory process is not excluded. Clinical correlation is needed. IMPRESSION: Contrast enhanced CT abdomen and pelvis showing no significant or suspicious finding. Fluid and stranding are present in the fatty tissues surrounding each breast implant. No air, abscess or foreign body in the partially imaged breast soft tissues. Correlation is needed with any history of recent implant revision, capsulotomy or other breast proced ure that would explain fluid and stranding. Soft tissue infectious/inflammatory process cannot be exc luded if there has been no breast or implant procedure.
--- NOTE | 2018-07-31 20:22 | PN ---
Date of Progress Note: 07/31/2018 Subjective: Patient seen and examined. Chart reviewed, and case discussed with RN and Dr. Chester. The patient states that she has a headache and overall does not feel too well. Has body aches. Did have fever last night of 103, currently afebrile. Medications: List reviewed. Physical Examination: Vital Signs: Temperature 99, heart rate 101, blood pressure 104/54, respirations 18, O2 98% on room air. General: Awake, alert, oriented x3. Some mild distress. Ill-appearing female. CV: S1, S2. Regular rate and rhythm. Peripheral pulses present. No murmurs. Respiratory: Moving air well bilaterally. No wheezing or stridor. Gastrointestinal: Abdomen is soft, nontender, nondistended. Positive bowel sounds. Extremities: No clubbing, cyanosis, or edema. Neuro: Nonfocal. Skin: No rashes. Normal skin turgor. Laboratory Data: Sodium 139, potassium 3.4, chloride 107, CO2 25, BUN 10, creatinine 0.7, glucose 99. Lactate 2.4, repeat lactate is 1.2. Calcium 7.5, CRP is 259, ESR is 31. Blood cultures pending. Influenza screen negative. Chest x-ray does not show any acute infiltrate. Assessment And Plan: A 52-year-old female with, 1. Fever of unknown origin. Urinalysis and chest x-ray are negative. We will obtain CT scan of the abdomen and pelvis to rule out source. We will obtain echocardiogram to rule out possible vegetation. We will start her on broad-spectrum IV antibiotics with vancomycin and cefepime. We will follow up on cultures. May consider infectious disease consultation. 2. History of breast cancer, bilateral, status post bilateral mastectomy. The patient was on anastrozole, which has been stopped due to side effects. The patient follows with oncologist at [facility]. The patient did have recent breast reconstruction surgery. 3. Early sepsis. Temp 103, Tachycardia HR 120s elevated lactate, hypotensive. We will bolus with IV fluids. IV abx. Follow up with cultures results. 4. Gastrointestinal and deep vein thrombosis prophylaxis addressed. The patient may have underlying viral infection. Doubt any source of meningitis. SA/MODL Voice ID: [id number] Report ID: [id number]
[2018-07-31] MEDS: CEFEPIME/SWI 2gm 2 GM/20 ML SYR IV SCH (20:36)
[2018-07-31] MEDS ORDERED: CEFEPIME 2 GM VIAL IV SCH (21:00)
[2018-08-01] MEDS: VANCOMYCIN 1.25 GM in NA CHLORIDE 0.9% 250 ML IVPB SCH ×2 (00:11→12:46)
[2018-08-01] MEDS: ACETAMINOPHEN 500 MG TAB PO PRN ×3 (00:12→17:37)
[2018-08-01] MEDS: MORPHINE 2 MG/ML SYR IV PRN ×2 (01:42→05:59)
[2018-08-01 04:47] LABS: Absolute Lymphocytes (CBC) 1.3 K/uL (0.7-4.9); Absolute Monocytes 0.5 K/uL (0.1-1.3); Absolute Neutrophil 10.9 K/uL (1.8-8.0); Basophils % 0.1 % (0-1.3); Eosinophils % 0.2 % (0-4.4); Hematocrit 31.7 % (36.0-45.0); Lymphocytes % 9.9 % (15.3-44.8); MCH 25.8 pg (27.0-35.0); MCV 80.6 fL (80-100); MPV 8.2 fL (7.6-11.3); Monocytes % 3.9 % (3.3-12.3); RBC Red Blood Cell Count 3.93 M/uL (3.86-4.86)
[2018-08-01 05:21] LABS: BUN Blood Urea Nitrogen 8 mg/dL (7-18); Bicarbonate 24 mmol/L (21-32); Glucose Level 78 mg/dL (74-106); Potassium 3.2 mmol/L (3.5-5.1); Sodium Level 142 mmol/L (136-145)
--- NOTE | 2018-08-01 07:18 | ECHO ---
HEIGHT: 5 ft 5 in WEIGHT: 154 lb 11.2 oz DATE OF STUDY: 07/31/[address]: Deny Johnston MD 2-DIMENSIONAL: YES M.MODE: YES DOPPLER: YES COLOR FLOW: YES TDS: YES PORTABLE: DEFINITY: BUBBLE STUDY: DIAGNOSIS: FEVER OF UNKNOWN ORIGIN, RULE OUT VEGETATION CARDIAC HISTORY: CATHERIZATION: NO SURGERY: NO PROSTHETIC VALVE: NO PACEMAKER: NO MEASUREMENTS (cm) DIASTOLIC (NORMALS) SYSTOLIC (NORMALS) IVSd 0.8 (0.6-1.2) LA Diam 2.2 (1.9-4.0) LVEF 59% LVIDd 3.3 (3.5-5.7) LVIDs 2.3 (2.0-3.5) %FS 30% LVPWd 1.0 (0.6-1.2) Ao Diam 2.4 (2.0-3.7) 2 DIMENSIONAL ASSESSMENT: RIGHT ATRIUM: NORMAL LEFT ATRIUM: NORMAL RIGHT VENTRICLE: NORMAL LEFT VENTRICLE: NORMAL TRICUSPID VALVE: NORMAL MITRAL VALVE: NORMAL PULMONIC VALVE: NORMAL AORTIC VALVE: NORMAL PERICARDIAL EFFUSION: NONE AORTIC ROOT: NORMAL LEFT VENTRICULAR WALL MOTION: NORMAL DOPPLER/COLOR FLOW: NORMAL COMMENTS: NORMAL 2-DIMENSIONAL ECHOCARDIGRAM WITH DOPPLER. TECHNOLOGIST: MACKENZIE PORTER
[2018-08-01] MEDS: NA CHLORIDE 0.9% 1,000 ML IV SCH ×3 (07:48→22:39)
[2018-08-01] MEDS ORDERED: POTASSIUM 25 MEQ EFFERV TAB PO ONE (09:00)
[2018-08-01] MEDS: VENLAFAXINE HCL XR 75 MG CAP PO SCH (10:12)
[2018-08-01] MEDS: CEFEPIME/SWI 2gm 2 GM/20 ML SYR IV SCH ×2 (10:12→20:21)
[2018-08-01 14:54] VITALS: O2SAT 99
[2018-08-01] MEDS ORDERED: NA CHLORIDE 0.9% 500 ML IV ONE (17:32)
--- NOTE | 2018-08-01 17:33 | CON ---
History: This is a 52-year-old female, was doing well until a few days ago when she developed fever with spiking all the way to 102, has significant history of breast cancer with bilateral mastectomy a nd subsequent breast implant. Currently being treated with anastrozole since December of 2017, the patien derrell was told to stop the anastrozole and she started having aches and pains with fevers of 100.3 was no catherine in the ER. Denies any headache, nausea, vomiting, chest pain, abdominal pain, constipation, or d iarrhea. No burning urination. Past Medical History: Breast cancer, bilateral mastectomy, and breast implants. Social History: Nonsmoker, nondrinker. Family History: Noncontributory. Medication: Cefepime and vancomycin. See MARS for other medication. Allergies: INCLUDE CIPROFLOXACIN, SULFA DRUGS. Review of Systems: A 10-point review was performed. Physical Examination: General: The patient lying in bed, not in any acute cardiopulmonary distress. Vital Signs: Temperature 98.8, pulse 100, respiration 18, blood pressure 112/63. HEENT: Unremarkable. Neck: Supple. Lungs: Clear to auscultation. Heart: S1, S2. Regular. Abdomen: Soft. Bowel sounds present. Extremity: No edema. Diagnostic Data: CT scan of abdomen showed no significant suspicious findings. Chest x-ray is negat lizbet. Head CT is negative. Laboratory Data: Shows WBC 12.7, hemoglobin 10.2, platelets are 193. Micro data blood cultures are negative for 24 hours. Urine is pending. Assessment And Plan: Fevers, leukocytosis in a patient with significant history of breast cancer sta tus post bilateral mastectomy. CT scan is negative. Chest x-ray is negative. Blood cultures negati ve for 24 hours. The patient is feeling slightly better. We will recommend switching patient to Aug mentin total of 10 days as the fever has subsided with the antibiotic. The patient can also be monit ored without antibiotic if she can follow up with her primary care. HELDER/SHEBA Voice ID: [id number] Report ID: [id number]
[2018-08-01] MEDS: KETOROLAC 30 MG/ML INJ IV PRN (18:17)
[2018-08-02] MEDS: VANCOMYCIN 1.25 GM in NA CHLORIDE 0.9% 250 ML IVPB SCH ×2 (00:24→11:28)
[2018-08-02 08:39] LABS: Absolute Monocytes 0.3 K/uL (0.1-1.3); Absolute Neutrophil 8.5 K/uL (1.8-8.0); Basophils % 0.4 % (0-1.3); Eosinophils % 0.4 % (0-4.4); Hematocrit 26.9 % (36.0-45.0); Lymphocytes % 9.9 % (15.3-44.8); MCH 25.9 pg (27.0-35.0); MCV 79.4 fL (80-100); MPV 8.9 fL (7.6-11.3); Monocytes % 3.5 % (3.3-12.3)
[2018-08-02 08:50] LABS: ALT/SGPT 17 U/L (12-78); AST/SGOT 19 U/L (15-37); Albumin 2.2 g/dL (3.4-5.0); Alkaline Phosphatase 94 U/L (45-117); BUN Blood Urea Nitrogen 4 mg/dL (7-18); Bicarbonate 23 mmol/L (21-32); Bilirubin Total 0.3 mg/dL (0.2-1.0); Glucose Level 94 mg/dL (74-106); Potassium 3.8 mmol/L (3.5-5.1); Protein, Total 6.1 g/dL (6.4-8.2); Sodium Level 141 mmol/L (136-145)
[2018-08-02] MEDS: CEFEPIME/SWI 2gm 2 GM/20 ML SYR IV SCH (08:58)
[2018-08-02] MEDS: VENLAFAXINE HCL XR 75 MG CAP PO SCH (08:58)
--- NOTE | 2018-08-02 11:43 | DS ---
Date of Discharge: 08/01/2018 Consultants: Infectious Disease, Dr. Saha and Dr. Chester with Hematology/ Oncology. Procedures: Echocardiogram, left ventricular ejection fraction is 59%. Normal 2D echo. Peripheral blood smear, leukocytosis with absolute neutrophilia and left shift, favor reactive neutrophilia, normocytic-hypochromic anemia. Admitting Diagnoses: 1. Fever of unknown origin. 2. History of breast cancer, bilateral, status post mastectomy. Discharge Diagnoses: 1. Fever of unknown origin, resolved. 2. History of breast cancer, bilateral, status post bilateral mastectomy and breast reconstruction. 3. Hypotension, improved. 4. Hypokalemia. Hospital Course: The patient is a 52-year-old female with past medical history of breast cancer, who has had bilateral mastectomy and recent reconstruction. The patient was on anastrozole, which was held due to side effects. The patient comes in with high fevers as high as 103 with unclear source. The patient was hypotensive initially, however, blood pressure improved with IV fluids. She did have some electrolyte abnormalities including hypokalemia, which were corrected. The patient did have slightly elevated WBC count, which trended down. Her ESR and CRP were elevated. Source of infection was not found. UA was negative. Her chest x-ray was clear, did not show any infiltrates. [place] screen was negative. Influenza screen was also negative. Her blood cultures did not show any growth to date. Abdomen and pelvis CT was done, which showed no acute abnormalities. Did show some fluid and stranding present in the fatty tissue surrounding each breast implant. This is likely related to her recent implant and reconstruction. Peripheral blood smear was also done, which showed a reactive neutrophilia. Echocardiogram was done, which did not show any obvious vegetations. Her ejection fraction was normal. Head CT scan was done due to headache and history of cancer patient to rule out metastatic disease or other lesions, which was negative for any acute issues. The patient overall did well. Her body aches and generalized malaise improved. Her white count was trending down. She was afebrile since 6 p.m., 2017. She was able to ambulate and tolerate her diet. No nausea or vomiting. The patient was feeling significantly better. The patient did not appear septic. Vital signs were improving. The patient was then seen by Infectious Disease, Dr. Saha, and he recommended outpatient antibiotics p.o. with Augmentin. The patient was then cleared for discharge. She was discharged to home in a stable condition. Medications: As per medication reconciliation list. Followup: Follow up with PCP in 2-3 days. Follow up with oncologist at [facility] as scheduled within the next 4 weeks. Return to ER for worsening condition. Diet: Regular. Activity: As tolerated. Physical Examination: General: Awake, alert, oriented x3. No acute distress. CV: S1, S2. No murmurs. Respiratory: Moving air well bilaterally. No wheezing. Gastrointestinal: Abdomen is soft, nontender, nondistended. Positive bowel sounds. Extremities: No clubbing, cyanosis, edema. Neurologic: Nonfocal. Skin: No rashes. Normal skin turgor. ADDENDUM: Patient spiked low grade fever prior to DC. Consult surgery. Hold DC until afebrile. /MODL Voice ID: [id number] Report ID: [id number] WALDO
[2018-08-02] MEDS ORDERED: INFLUENZA VACCINE (for 3y+) 0.5 ML DOSE IMVAC ONE (12:00)
[2018-08-02 12:51] VITALS: BP 126/60; TEMP 99.5
[2018-08-02] MEDS: NA CHLORIDE 0.9% 1,000 ML IV SCH (12:55)
--- NOTE | 2018-08-02 16:10 | CON ---
Date of Consultation: 08/02/2018 Reason: Fever of unknown origin. History Of Present Illness: The patient is a 52-year-old female, who was earlier this year diagnosed with right breast cancer, underwent a bilateral mastectomy and implants, TRAM flap, and then that wa s done November or December of this year and then about a month ago, she had fat injections taken from her ou ter and inner thighs and injected on the areas in the breast that were caved in a little bit, and she was in her usual state of health, and she takes anastrozole treatment since December of this year. She w as having generalized pain due to that and her oncologist advised her to stop taking it and she did t hat on Saturday. However, on Saturday, she started having very high fevers up to 103, and she came t o the emergency room, was evaluated, and there was reportedly a rash present, which improved, on the chest. There was just generalized pain, nonspecific, and she had a complete fever workup. Her blood cultures were negative. Chest x-ray was unremarkable. CT of the abdomen and pelvis showed some az a around the injection site of the fat that was put in the chest, otherwise it was unremarkable. She was seen by Infectious Disease. She did have leukocytosis. Her lactate was elevated; however, the procalcitonin was within normal limits. She does not really complain of any specific pain from where the fat was removed or the injection site. There was 1 area on the left inner quadrant of the left breast that is a little bit tender. There were no open wounds. There were no other clinical finding s to account for her fevers. She feels much better today. She is eating. She had a low-grade tempe rature this morning. Her leukocytosis has normalized. Review of Systems: Otherwise unremarkable. Past Medical History: Significant for breast cancer. Past Surgical History: Bilateral mastectomy and breast implantation with revision. Allergies: INCLUDE CIPRO, SULFA, AND HYDROCODONE. Social History: She does not smoke or drink. Family History: Noncontributory. Physical Examination: Vital Signs: Currently are stable. Her temperature last one taken was 99.8. General: She is awake, alert, and oriented x3. Head and Neck: Cranial nerves 2 to 12 grossly within normal limits. No neck masses. No JVD. Throa t clear. Neck: Supple. Chest: Clear. Heart: S1, S2. Abdomen: Soft. Extremities: The site of aspiration of the fat was examined. There was no evidence of erythema, war mth, or edema. Neuro: Nonfocal. Chest and breast were examined. Again, everything looks normal except for this 1 small area in the l eft upper inner quadrant of the breast, which is a little red and a little tender, but no fluctuance. Laboratory Data: CAT scan and chest x-ray reviewed as per HPI. Assessment: Fever of unknown origin in a patient with breast cancer, and breast implant and recent r evision recommendation. The only source that I could see that possibly could explain the fever is th at left breast inner quadrant area; however, she is symptomatically much better. She is essentially afebrile, just a low grade temperature right now. White count is normal. Therefore, I think she can be discharged on oral antibiotics and to immediately follow up with her surgeon at [facility] on Mo nday. Plan of care was discussed in detail with the patient, family, and Dr. Johnston. NEWTON/SHEBA Voice ID: [id number] Report ID: [id number]
--- NOTE | 2018-08-02 18:10 | PN ---
Date of Progress Note: 08/02/2018 History: The patient is seen and examined. Chart reviewed and case discussed with RN and Dr. Martin. No fevers overnight. The patient feels significantly better. No body aches. Medications: List reviewed. Physical Examination: Vital Signs: Temperature 99.5, heart rate 89, blood pressure 126/60, respirations 24, O2 100% on sharan m air. General: Awake, alert, oriented x3. No acute distress. CV: S1, S2. No murmurs. Respiratory: Moving air well bilaterally. No wheezing. Abdomen: Soft, nontender, nondistended. Positive bowel sounds. Extremities: No clubbing, cyanosis, or edema. Neurologic: Nonfocal. Skin: Some mild erythema on the left breast outer quadrant. Laboratory Data: Sodium 141, potassium 3.8, chloride 109, CO2 23, BUN 4, creatinine 0.5, glucose 94, lactate 1.4, calcium 7.9, albumin 2.2. WBC 9.9, H and H 8.8 and 26.9, platelets 209, neutrophils 85 %. Blood cultures no growth to date. Urine culture no growth. Sputum culture pending. Assessment And Plan: A 52-year-old female with: 1.Sepsis likely secondary to infection from recent breast procedure. 2.Fever of unknown origin, likely due to the recent breast reconstruction procedure. 3.Hypokalemia, corrected. 4.History of breast cancer, bilateral, status post mastectomy. Plan: Discharge home on antibiotics. Follow up with plastic surgeon in the next 2-3 days. /SHEBA Voice ID: [id number] Report ID: [id number]
== END 2018-08-02 14:05 | disposition home or self-care (01) | DRG 864 ==
LOC: ER 17:04 → OBSVTOIN 07-31 01:30 → 3RD-ICU 07-31 01:30 → 4TH 07-31 03:00
PROVIDERS: ADMIT Internal Medicine; ATTEND Family Medicine
DX: R50.9 Fever, unspecified (principal); C50.912 Malignant neoplasm of unspecified site of left female breast; C50.911 Malignant neoplasm of unspecified site of right female breast; Z90.13 Acquired absence of bilateral breasts and nipples; Z98.82 Breast implant status; Z88.2 Allergy status to sulfonamides; Z88.8 Allergy status to other drugs, medicaments and biological substances; I95.9 Hypotension, unspecified; E87.6 Hypokalemia; D72.828 Other elevated white blood cell count; D64.9 Anemia, unspecified
CPT/HCPCS: 36415; 70450; 71045; 74177; 80048; 80053; 80076; 80202; 81003; 81015; 82550; 82553; 83605; 83690; 84132; 84145; 84484; 85025; 85610; 85652; 85730; 86140; 86308; 87040; 87070; 87086; 87088; 87205; 87804; 93005; 93306; 96365; 96366; 96367; 96375; 99285; G0008; J0692; J1170; J2270; J2405; J2543; J3010; J3370; J7030; Q2035; Q9967

== ENCOUNTER 2019-07-24 04:48 | Emergency (ER) | payer OTHER ==
[2019-07-24] MEDS ORDERED: DIAZEPAM 5 MG TABLET ONE (06:05)
[2019-07-24] MEDS ORDERED: dexAMETHasone 10 MG/ML VIAL ONE (06:05)
[2019-07-24] MEDS ORDERED: ONDANSETRON 4 MG/2 ML VIAL ONE (06:06)
[2019-07-24] MEDS ORDERED: KETOROLAC 30 MG/ML INJ ONE (06:06)
[2019-07-24] MEDS ORDERED: HYDROMORPHONE HCL 2 MG/ML inj ONE (06:06)
[2019-07-24 06:07] LABS: Absolute Lymphocytes (CBC) 1.2 K/uL (0.7-4.9); Basophils % 0.5 % (0-1.3); Hematocrit 35.1 % (36.0-45.0); Lymphocytes % 21.8 % (15.3-44.8); MPV 7.7 fL (7.6-11.3); RBC Red Blood Cell Count 4.13 M/uL (3.86-4.86)
[2019-07-24 06:09] LABS: Urine Blood NEGATIVE (NEG); Urine Glucose NEGATIVE (NEG); Urine Protein NEGATIVE (NEG); Urine Specific Gravity 1.025 (1.005-1.030)
[2019-07-24 06:37] LABS: Albumin 3.5 g/dL (3.4-5.0); Bilirubin Total 0.4 mg/dL (0.2-1.0); Protein, Total 7.7 g/dL (6.4-8.2)
--- NOTE | 2019-07-24 08:14 | RAD REPORT ---
EXAM DESCRIPTION: CT - Spine Lumbar Wo Con - 07/24/2019 7:15 am CLINICAL HISTORY: Radiculopathy. Pain;Numbness/tingling COMPARISON: No comparisons TECHNIQUE: Axial noncontrast CT imaging of the lumbar spine was performed with coronal and sagittal re-formatted images. All CT scans are performed using dose optimization technique as appropriate and may include automated exposure control or mA/KV adjustment according to patient size. FINDINGS: No acute lumbar spine fracture seen. No aggressive marrow pattern or malalignment. Paraspinal tissues are normal in thickness. No paraspinal abscess or hematoma seen. Posterior disc bulges are present lower lumbar spine with mild facet hypertrophy. Findings appear mos t significant at L4-5 for the left. No high-grade stenosis seen in the central canal. IMPRESSION: No acute lumbar spine finding. Mild to moderate lower lumbar spondylosis is suspected, greatest at L4-5. No severe canal stenosis se en. Follow-up nonemergent MR imaging of the lumbar spine would be suggested.
[2019-07-24] MEDS ORDERED: HYDROMORPHONE HCL 0.5 MG/0.5 ML INJ ONE (08:24)
--- NOTE | 2019-07-24 08:48 | ER ---
Nurse's Notes [facility] Name: Cassy Schmitz Age: 53 yrs Sex: Female : 1965 Arrival Date: 07/24/2019 Time: 04:53 Bed 19 Private MD: Diagnosis: Low back pain-intractable;Sciatica, left side Presentation: 07/24 04:57 Presenting complaint: Patient states: left sciatic nerve pain intermittent X1 year with ak1 increased pain for 2 days s/p deep tissue massage. Transition of care: patient was not received from another setting of care. Onset of symptoms is unknown. Risk Assessment: Do you want to hurt yourself or someone else? Patient reports no desire to harm self or others. Initial Sepsis Screen: Does the patient meet any 2 criteria? No. Patient's initial sepsis screen is negative. Does the patient have a suspected source of infection? No. Patient's initial sepsis screen is negative. Care prior to arrival: None. 04:57 Method Of Arrival: EMS: [facility] ak 04:57 Acuity: JANI 4 ak1 Triage Assessment: 05:01 General: Appears in no apparent distress. uncomfortable, Behavior is calm, cooperative. ak1 Pain: Complains of pain in left leg. EENT: No signs and/or symptoms were reported regarding the EENT system. 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 Full function Speech is normal, Facial symmetry appears normal. Cardiovascular: No deficits noted. Respiratory: Airway is patent Respiratory effort is even, unlabored. GI: No signs and/or symptoms were reported involving the gastrointestinal system. : No signs and/or symptoms were reported regarding the genitourinary system. Derm: No signs and/or symptoms reported regarding the dermatologic system. Musculoskeletal: Range of motion: decreased on left side due to pain. BLOCK SETTER GYPSUM: 04:56 LMP N/A - Hysterectomy ak1 Historical: - Allergies: 05:01 Ciprofloxacin HCl; ak1 05:01 Sulfa (Sulfonamide Antibiotics); ak1 05:01 Hydrocodone-Acetaminophen; ak1 - Home Meds: 05:01 Tramadol Oral [Active]; venaflexine [Active]; ak1 - PMHx: 05:01 breast cancer; ak1 - PSHx: 05:01 breast surgery; ak1 - Immunization history:: Flu vaccine is up to date. - Social history:: Smoking status: Patient/guardian denies using tobacco, Patient uses alcohol, only on a social basis. - Ebola Screening: : No symptoms or risks identified at this time. - Family history:: not pertinent. Screenin:19 Abuse screen: Denies threats or abuse. Denies injuries from another. Nutritional screening: No deficits noted. Tuberculosis screening: No symptoms or risk factors identified. Fall Risk None identified. Assessment: 05:00 Reassessment: SEE TRIAGE ASSESSMENT. 05:24 Reassessment: Patient appears in no apparent distress at this time. No changes from previously documented assessment. Patient and/or family updated on plan of care and expected duration. Pain level reassessed. Patient is alert, oriented x 3, equal unlabored respirations, skin warm/dry/pink. 06:38 Reassessment: Patient appears in no apparent distress at this time. No changes from previously documented assessment. Patient and/or family updated on plan of care and expected duration. Pain level reassessed. Patient is alert, oriented x 3, equal unlabored respirations, skin warm/dry/pink. 07:20 Reassessment: pt currently in CT. iw 08:20 Reassessment: reports pain is 11/10, provider notified, received new medication orders. iw 09:10 Reassessment: Patient appears in no apparent distress at this time. Patient and/or em family updated on plan of care and expected duration. Pain level reassessed. Patient is alert, oriented x 3, equal unlabored respirations, skin warm/dry/pink. rates pain 3/10 Patient states feeling better. 09:30 Reassessment: report given to KEREN Trujillo at [facility], pending EMS transportation. em 10:30 Reassessment: Patient appears in no apparent distress at this time. Patient and/or em family updated on plan of care and expected duration. Pain level reassessed. Patient is alert, oriented x 3, equal unlabored respirations, skin warm/dry/pink. report given to EMS. Vital Signs: 04:56 BP 110 / 76; Pulse 93; Resp 16; Temp 98.3(TE); Pulse Ox 98% on R/A; Weight 72.57 kg ak1 (R); Height 5 ft. 5 in. (165.10 cm) (R); Pain 8/10; 05:15 BP 112 / 77; Pulse 82; Resp 18; Pulse Ox 98% ; wh 06:45 BP 100 / 76; Pulse 82; Resp 18; Pulse Ox 95% on R/A; wh 07:30 BP 123 / 81; Pulse 83; Resp 18; Pulse Ox 99% on R/A; Pain 10/10; em 09:10 BP 115 / 82; Pulse 81; Resp 16; Pulse Ox 100% on R/A; Pain 3/10; em 04:56 Body Mass Index 26.63 (72.57 kg, 165.10 cm) ak1 ED Course: 04:53 Patient arrived in ED. ak1 04:59 Triage completed. ak1 05:01 Arm band placed on Patient placed in an exam room, on a stretcher, on pulse oximetry, ak1 Patient notified of wait time. 05:12 Francis Sharp MD is Attending Physician. [facility] 05:19 Vicky Iqbal is Primary Nurse. 05:19 Patient has correct armband on for positive identification. Bed in low position. Call light in reach. Side rails up X 1. Pulse ox on. NIBP on. 07:17 CT Lumbar Spine Wo Con In Process Unspecified. EDMS 07:[address] Sharp with Carolina Simmons from the [facility] eb center. 07:[address] Dc called and message left to please call Dr. Sharp back. eb 08:[address] Guerrier the neurologist production control technologist for [facility] with Dr. Sharp for eb patient transfer consultation. 08:[address] Vaca the hospitalist on all for [facility] with Dr. Sharp for eb patient transfer consultation. 08:57 administrative approval given by Carolina Simmons/ patient has been accepted to [facility] rm [id number] / Dr. Vaca has accepted the patient in transfer/ report to be called [phone]. 10:44 No provider procedures requiring assistance completed. Patient transferred, IV remains em in place. Administered Medications: 06:04 Drug: Zofran 4 mg Route: IVP; Site: left antecubital; 07:30 Follow up: Response: No adverse reaction em 06:06 Drug: Decadron - Dexamethasone 10 mg Route: IVP; Site: left antecubital; 07:30 Follow up: Response: No adverse reaction; Pain is unchanged, physician notified em 06:10 Drug: TORadol 30 mg Route: IVP; Site: left antecubital; 07:30 Follow up: Response: No adverse reaction; Pain is unchanged, physician notified em 06:13 Drug: Dilaudid 1 mg Route: IVP; Site: left antecubital; 07:30 Follow up: Response: No adverse reaction; Pain is unchanged, physician notified em 06:14 Drug: Valium 5 mg Route: PO; 07:30 Follow up: Response: No adverse reaction; Pain is unchanged, physician notified em 08:31 Drug: Dilaudid 0.5 mg Route: IVP; Site: left antecubital; em 09:15 Follow up: Response: No adverse reaction; Pain is decreased; RASS: Alert and Calm (0) iw Outcome: 08:46 ER care complete, transfer ordered by MD. menezes 10:44 Transferred by ground EMS to [facility], Transfer form completed. em X-rays sent w/ patient. 10:44 Condition: good 10:44 Instructed on the need for transfer, Demonstrated understanding of instructions. 10:46 Patient left the ED. em Addendum: 07/29/2019 17:23 Addendum: Culture Results: Positive urine culture. pt was transferred to [facility], was discharged home , no further intervention needed. Signatures: Dispatcher [employer] EDFrancis Gonzalez MD MD cha Munoz, Edgar, SYSTEMS MANAGEMENT CONSULTANT SYSTEMS MANAGEMENT CONSULTANT em Sunshine Romero RN RN Mariaa Givens RN RN ak1 Vicky Iqbal Carolina Camara Corrections: (The following items were deleted from the chart) 07/24 05:25 05:19 Reassessment: SEE TRIAGE ASSESSMENT. [facility]
--- NOTE | 2019-07-24 08:48 | EDPHYS ---
Physician Documentation [facility] Name: Cassy Schmitz Age: 53 yrs Sex: Female : 1965 Arrival Date: 07/24/2019 Time: 04:53 Bed 19 Private MD: ED Physician Francis Sharp HPI: 07/24 05:29 This 53 yrs old Female presents to ER via EMS with complaints of Sciatic Pain. clif 05:29 The patient presents with pain that is acute, with no known mechanism of injury, and clif decreased range of motion. The symptoms are located in the low back. Onset: The symptoms/episode began/occurred 2 day(s) ago. The pain radiates to the left low back. Associated signs and symptoms: The patient has no apparent associated signs or symptoms. The problem was sustained without known cause. Modifying factors: The patient symptoms are alleviated by remaining still, the patient symptoms are aggravated by any movement, bending, coughing. Severity of symptoms: At their worst the symptoms were moderate, severe, in the emergency department the symptoms are unchanged. The patient has experienced similar episodes in the past, multiple times. 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 - Social history:: Smoking status: Patient/guardian denies using tobacco, Patient uses alcohol, only on a social basis. - Ebola Screening: : No symptoms or risks identified at this time. - Family history:: not pertinent. ROS: 05:29 Constitutional: Negative for fever, chills, and weight loss, Eyes: Negative for injury, clif pain, redness, and discharge, ENT: Negative for injury, pain, and discharge, Neck: Negative for injury, pain, and swelling, Cardiovascular: Negative for chest pain, palpitations, and edema, Respiratory: Negative for shortness of breath, cough, wheezing, and pleuritic chest pain, Abdomen/GI: Negative for abdominal pain, nausea, vomiting, diarrhea, and constipation, : Negative for injury, bleeding, discharge, and swelling, MS/Extremity: Negative for injury and deformity, Skin: Negative for injury, rash, and discoloration, Neuro: Negative for headache, weakness, numbness, tingling, and seizure, Psych: Negative for depression, anxiety, suicide ideation, homicidal ideation, and hallucinations, Allergy/Immunology: Negative for hives, rash, and allergies, Endocrine: Negative for neck swelling, polydipsia, polyuria, polyphagia, and marked weight changes, Hematologic/Lymphatic: Negative for swollen nodes, abnormal bleeding, and unusual bruising. 05:29 Back: Positive for decreased range of motion, pain at rest, pain with movement, radiated pain, of the left low back. Exam: 05:29 Constitutional: This is a well developed, well nourished patient who is awake, alert, clif and in no acute distress. Head/Face: Normocephalic, atraumatic. Eyes: Pupils equal round and reactive to light, extra-ocular motions intact. Lids and lashes normal. Conjunctiva and sclera are non-icteric and not injected. Cornea within normal limits. Periorbital areas with no swelling, redness, or edema. ENT: Nares patent. No nasal discharge, no septal abnormalities noted. Tympanic membranes are normal and external auditory canals are clear. Oropharynx with no redness, swelling, or masses, exudates, or evidence of obstruction, uvula midline. Mucous membranes moist. Neck: Trachea midline, no thyromegaly or masses palpated, and no cervical lymphadenopathy. Supple, full range of motion without nuchal rigidity, or vertebral point tenderness. No Meningismus. Chest/axilla: Normal chest wall appearance and motion. Nontender with no deformity. No lesions are appreciated. Cardiovascular: Regular rate and rhythm with a normal S1 and S2. No gallops, murmurs, or rubs. Normal PMI, no JVD. No pulse deficits. Respiratory: Lungs have equal breath sounds bilaterally, clear to auscultation and percussion. No rales, rhonchi or wheezes noted. No increased work of breathing, no retractions or nasal flaring. Abdomen/GI: Soft, non-tender, with normal bowel sounds. No distension or tympany. No guarding or rebound. No evidence of tenderness throughout. Skin: Warm, dry with normal turgor. Normal color with no rashes, no lesions, and no evidence of cellulitis. MS/ Extremity: Pulses equal, no cyanosis. Neurovascular intact. Full, normal range of motion. Neuro: Awake and alert, GCS 15, oriented to person, place, time, and situation. Cranial nerves II-XII grossly intact. Motor strength 5/5 in all extremities. Sensory grossly intact. Cerebellar exam normal. Normal gait. Psych: Awake, alert, with orientation to person, place and time. Behavior, mood, and affect are within normal limits. 05:29 Back: pain, that is moderate, ROM is painful, normal spinal alignment noted, CVA tenderness, is absent, muscle spasm, is appreciated in the left low back, left mid back, right mid back and right low back. Vital Signs: 04:56 BP 110 / 76; Pulse 93; Resp 16; Temp 98.3(TE); Pulse Ox 98% on R/A; Weight 72.57 kg ak1 (R); Height 5 ft. 5 in. (165.10 cm) (R); Pain 8/10; 05:15 BP 112 / 77; Pulse 82; Resp 18; Pulse Ox 98% ; wh 06:45 BP 100 / 76; Pulse 82; Resp 18; Pulse Ox 95% on R/A; wh 07:30 BP 123 / 81; Pulse 83; Resp 18; Pulse Ox 99% on R/A; Pain 10/10; em 09:10 BP 115 / 82; Pulse 81; Resp 16; Pulse Ox 100% on R/A; Pain 3/10; em 04:56 Body Mass Index 26.63 (72.57 kg, 165.10 cm) ak1 MDM: 05:12 Patient medically screened. [facility] 05:32 Data reviewed: vital signs, nurses notes, old medical records, radiologic studies, CT clif scan. 07/24 05:29 Order name: CBC with Diff; Complete Time: 06:28 [facility] 07/24 05:29 Order name: Comprehensive Metabolic Panel; Complete Time: 07:15 [facility] 07/24 05:29 Order name: Urine Culture [facility] 07/24 05:29 Order name: CT Lumbar Spine Wo Con; Complete Time: 08:48 [facility] 07/24 06:05 Order name: Urine Dipstick--Ancillary (enter results); Complete Time: 06:28 ar5 07/24 06:05 Order name: Urine --Ancillary (enter results); Complete Time: 06:28 ar5 07/24 05:29 Order name: Urine Dipstick-Ancillary (obtain specimen); Complete Time: 06:13 [facility] 07/24 05:29 Order name: Urine Test (obtain specimen); Complete Time: 06:13 clif Administered Medications: 06:04 Drug: Zofran 4 mg Route: IVP; Site: left antecubital; 07:30 Follow up: Response: No adverse reaction em 06:06 Drug: Decadron - Dexamethasone 10 mg Route: IVP; Site: left antecubital; 07:30 Follow up: Response: No adverse reaction; Pain is unchanged, physician notified em 06:10 Drug: TORadol 30 mg Route: IVP; Site: left antecubital; 07:30 Follow up: Response: No adverse reaction; Pain is unchanged, physician notified em 06:13 Drug: Dilaudid 1 mg Route: IVP; Site: left antecubital; 07:30 Follow up: Response: No adverse reaction; Pain is unchanged, physician notified em 06:14 Drug: Valium 5 mg Route: PO; 07:30 Follow up: Response: No adverse reaction; Pain is unchanged, physician notified em 08:31 Drug: Dilaudid 0.5 mg Route: IVP; Site: left antecubital; em 09:15 Follow up: Response: No adverse reaction; Pain is decreased; RASS: Alert and Calm (0) iw Disposition: 07/24/19 08:46 Transfer ordered to [facility]. Diagnosis are Low back pain - intractable, Sciatica, left side. - Reason for transfer: Higher level of care. - Accepting physician is to [facility]. - Condition is Stable. - Problem is new. - Symptoms have improved. Signatures: Dispatcher [employer] Francis Puga MD MD cha Munoz, Edgar, DISTRICT MANAGER IN TRAINING DISTRICT MANAGER IN TRAINING em Kyler Valerio, DESIGN ENG-C DESIGN ENG-Cla1 Mariaa Givens RN RN ak1 Vicky Iqbal Sunshine Romero RN iw Corrections: (The following items were deleted from the chart) 10:46 08:46 07/24/2019 08:46 Transfer ordered to [facility]. Diagnosis is em Low back pain - intractable; Sciatica, left side. Reason for transfer: Higher level of care. Accepting physician is to [facility]. Condition is Stable. Problem is new. Symptoms have improved. clif
[2019-07-24 12:20] VITALS: TEMP 98.3
[2019-07-24 12:25] VITALS: BP 115/82; O2SAT 100
== END 2019-07-24 10:46 | disposition short-term general hospital (02) ==
LOC: ER 04:48
DX: M54.32 Sciatica, left side (principal); Z85.3 Personal history of malignant neoplasm of breast; Z88.1 Allergy status to other antibiotic agents; Z88.2 Allergy status to sulfonamides; Z88.5 Allergy status to narcotic agent
CPT/HCPCS: 87088; 85025; 87086; 36415; 81025; 87077 ×2; 87186 ×2; 81003; 80053; 72131; 96375; 96374; 99285; J1170 ×2; J1100; J2405